=== PATIENT | female | born 1980 | race Caucasian/White ===

== ENCOUNTER 2020-03-14 02:23 | Outpatient (CLI) | payer OTHER, SELFPAY ==
[2020-03-14 19:02] LABS: SARS-CoV-2 RNA PCR Negative
== END 2020-03-14 02:24 | disposition home or self-care (01) ==
LOC: ANHCOVIDDT 02:23
PROVIDERS: PCP Internal Medicine; Visit Provider Obstetrics & Gynecology
DX: Z01.812 Encounter for preprocedural laboratory examination (principal); Z20.828 Contact with and (suspected) exposure to other viral communicable diseases
CPT/HCPCS: 87635; C9803; U0003

== ENCOUNTER 2020-03-16 01:03 | Day surgery (SDC) | payer OTHER, SELFPAY ==
[2020-03-03 15:27] VITALS: BMI 32.2
[2020-03-16] VITALS (8 sets, daily range): BP systolic 110–120; BP diastolic 56–70; PULSE 55–72; RESP 12–16; TEMP 36.6–36.8; O2SAT 100
[2020-03-16] MEDS: LACTATED RINGERS 1,000 ML 30 ML IV CONT ×2 (08:32→11:18)
[2020-03-16] MEDS: ACETAMINOPHEN 500 MG TABLET 1000 MG PO (08:32)
[2020-03-16] MEDS: KETOROLAC 15 MG/ML VIAL (*BKC) IV PUSH (08:34)
--- NOTE | 2020-03-16 09:45 | WPDANESEPPF ---
Anes - Initial Pre Proc Eval Procedure: Operation Date: 03/16/20 10:00 Proposed Procedures p Laparoscopic Tubal with Bilateral Salpingectomy, Hysteroscopy with Earline Ablation - Zoila Hunt MD Date/Time: 03/16/20 09:45 Surgeon: Zoila Hunt MD Pre Op Diagnosis: sterilization, abn uterine bleeding Patient Data Age: 40 Gender: F Height: 5 ft Weight: 75.7 kg Last Vital Signs Temp 98.2 F 03/16/20 08:10 Pulse 70 03/16/20 08:10 Resp 16 03/16/20 08:10 BP 120/70 03/16/20 08:10 Pulse Ox 100 03/16/20 08:10 Allergies Allergy/AdvReac Type Severity Reaction Status Date / Time hydrocodone Allergy Severe rash/itchin Verified 03/16/20 08:03 g scopolamine Allergy Severe Rash Verified 03/16/20 08:03 Home Medications Medication Instructions Recorded Confirmed Type fluoxetine 20 mg PO DAILY 03/03/20 03/16/20 History montelukast 10 mg PO DAILY 03/03/20 03/16/20 History Patient hx anesthesia problems: none Family hx anesthesia problems: none [facility] Past Medical History Medical History (Updated 03/16/20 @ 09:45 by Kiet Sue MD) Asthma JACKELINE (obstructive sleep apnea) resolved with loss of weight Social History Social History Smoking status: Never smoker Spiritual care concerns: No Anes - Eval Final PreProcedure Day of Procedure 03/16/20 09:45 Patient weight: obese Heart: regular rate and rhythm Lungs: clear to auscultation Airway: Mallampati scale class II Neurological: alert and oriented Last oral intake: >/= 8 hours ASA classification: II Emergent: no Anesthetic plan: proceed Anesthesia type and monitoring: general ETT and standard monitoring Informed Consent: The patient's anesthetic plan and its attendant risks and benefits were discussed with the patient/family/POA. Questions were solicited and answers provided to the satisfaction of the patient/family/POA.
--- NOTE | 2020-03-16 10:07 | PM.HPGS ---
History of Present Illness History of Present Illness Consent: Risks, benefits, and alternatives have been discussed and questions answered. Patient agrees to proceed with procedure. Chief complaint: sterilization, abn uterine bleeding Narrative: Shira Jacob is a 40 year old female CC scheduled surgery HPI Here for scheduled surgery. Had EMB benign. Desired sterilization. However having ongoing issues with bleeding. Had gastric surgery so encouraged not to use oral hormoens and other forms havent agreed. R/B/A discussed. ROS -ESPINOZA, -Vis changes, -F/s/c, -hotflashes, -nightsweats -CP, -palpitations, -irregular heart beats -SOB, -Cough/wheeze -Abdominal pain, -diarrhea/constipation -Vaginal discharge, -bleeding, -ulcerations or masses -New skin lesions, -dryness, -hairloss -trouble ambulation, -vertigo, -dizziness, -muscle weakeness, -joint pains -depression/anxiety, -suicidal/homicidal ideation, -hallucinations PMHx Asthma PSHx Elbow Surgery - 12/2017 Gastric sleeve - 03/2019 Gallbladder Removal - 10/07 Basal Cell Carcinoma excision - 07/2015 Comments: Hernia repair with mesh FHx Comments: Fhx: Breast CA, Ovarian CA (sister), Cervical CA (mother) Soc Hx Tobacco: Never smoker Alcohol: Occasional drink Cardiovascular: Regular exercise Safety: Keep Firearms in home Ob Preg Hx Ob History: Age of menses:13 G4 T0 L3 Medications (Medication reconciliation last updated 02/11/2020 11:11 AM, ZOILA HUNT - Performed) Macrobid 100 mg capsule, 1 cap po bid (Edited by ZOILA HUNT on Feb, at 04:18 PM ) doxycycline monohydrate 100 mg capsule, 1 tab po bid x 14 days (Edited by ZOILA HUNT on Jan, at 11:11 AM ) FlagyL 500 mg tablet, 1 tab po bid (Edited by ZOILA HUNT on Jan, at 05:26 PM ) ALBUTEROL HFA 90 MCG INHALER (Edited by TERRY KIDD on Nov, at 07:00 PM ) FLUOXETINE HCL 20 MG CAPSULE (Edited by TERRY KIDD on Jun, at 06:00 PM ) CALCIUM 600-VIT D3 400 TABLET (Edited by CHARLOTTE BATES on 18 Nov, 2019 at 06:00 PM ) Allergies (Allergy reconciliation performed by ZOILA HUNT 07:59 AM 27 Feb 2020 Last updated) Vicodin (Unknown) scopolamine (Unknown) Comments:patch Vitals 10 Mar 2020 - 03:15 PM - recorded by Jada Wadsworth BP: 120.0 / 73.0 HR: 74.0 bpm Temp: 98.1 ?F Ht/Lt: 5' 0 Wt: 164 lbs 0 oz BMI: 32.03 EXAM GEN: NAD RESP: lungs clear to auscultation bilaterally, no rales, wheezes or rhonchi CV: RRR, no m/r/g GI: +BS, nontender to palpation EXT: no cyanosis/clubbing/edema NEURO: AO x 3 PSYCH: judgment/insight intact, NL mood/affect Assessment Sterilization requested (situation) (Z30.2/V25.2) Encounter for sterilization modified Feb, Abnormal vaginal bleeding (finding) (N93.9/626.9) Abnormal uterine and vaginal bleeding, unspecified modified Feb, Plan Plan is to proceed with scheduled surgery. All risks/benefits/alternatives were discussed in detail including: Injury to surrounding organs, infection, bleeding, blood transfusion, and repeat surgery. All post operative care instructions reviewed and were sent to her via the portal for review as well. She agrees to proceed. Plan to move forward [facility] laparoscopic tubal sterilization and endometrial ablation with augustine HUNT M.D. 16 Mar 2020 10:07 AM [facility] Past Medical History Medical History Asthma JACKELINE (obstructive sleep apnea) resolved with loss of weight Social History Social History Smoking status: Never smoker Spiritual care concerns: No Meds Home Medications and Allergies Home Medications Medication Instructions Recorded Confirmed Type fluoxetine 20 mg PO DAILY 03/03/20 03/16/20 History montelukast 10 mg PO DAILY 03/03/20 03/16/20 History Allergies Allergy/AdvReac Type Severity Reaction Status Date / Time [facility]
--- NOTE | 2020-03-16 10:08 | WPDHPUPDATE1 ---
History and Physical Update Update Date/Time: 03/16/20 10:08 History and Physical has been reviewed, including an updated exam of the patient. There are NO changes in the patient's condition. Risks, benefits, and alternatives have been discussed and questions answered. Patient agrees to proceed with procedure.
--- NOTE | 2020-03-16 11:13 | PM.PROC ---
Procedure Note - Detailed Date of procedure: 03/16/20 Pre-op diagnosis: sterilization, abn uterine bleeding Post-op diagnosis: other (Abnormal uterine bleeding, left ovarian cyst, sterilization) Procedure performed: Hysteroscopy D&C with endometrial ablation with Earline, Laparoscopy bilateral salpingectomy and right ovarian cystectomy Description of procedure: The patient was taken to the operating room where general anesthesia was found to be adequate She was then prepared and draped in the dorsal lithotomy position in [facility]. A speculum was used to visualize the cervix and a single toothed tenaculum was placed on the anterior lip. [place] uterine manipulator used to insert into the cervix and affix to the tenaculum. Speculum was removed. Attention was then turned to the umbilicus which was injected with 0.5% marcaine with epinephrine, incised in her previous umbilical incision and subcutaneous tissue dissected with a hemostat. Veres needle used to insert into the peritoneum cavity and saline drop test positive for peritoneal entry. CO2 used for insufflation up to 15mmHg. A 5mm port was inserted into the infraumbilical incision and the camera inserted. No adhesions noted. The patient was then placed in Trendelenberg. The uterus was elevated and found to be normal and free of adhesions or endometriosis. The tubes were normal bilaterally. The left ovary had a ovarian cyst present which appeared simple. A left lower quadrant port was placed by injecting the skin with 0.5% marcaine with epinephrine, incising with a scalpel and placing the 5mm port with direct visualization approximately 2 fingerbreadths medial to the left asis. Similarly a right lower port placed just to the right of midline at the suprapubic region. The left fallopian tube was elevated exposing the fimbria. The tuboovarian ligament was cauterized to the base and the tube was then amputated at its base with the 5mmLigasure. It was pulled through the 5mm port and sent to pathology. Similarly the right was done in the same fashion. After the tubes were removed, there was good hemostasis noted. The left ovarian cyst appeared to have an opening as if it were an ovulatory follicle. The ovary was squeezed and the cyst popped out. It was removed. Then the edges of the cyst marc were cauterized with the J hook cautery. The pneumoperitoneum was released and the ports were removed. The incision were closed with verticle mattress sutures deep to the skin and covered with sterile dressing. Attention was turned to the vagina where the speculum was again reinserted. The uterus was serially dilated with Hegar dilators. A 5mm hysteroscope was inserted and saline 0.9% used for distension. The cavity appeared white and fluffy without polyp or distortion. So, the uterus was sounded to 9cm and cervix measured to be 4cm Cavity length 5cm. Earline was set and inserted. Cavity assessment passed and ablation proceeded without interruption. The camera reinserted and cavity had adequate coverage of ablation. The patient tolerated the procedure well. Sponge lap and needle counts were correct. Anesthesia: GETA Surgeon: Zoila Hunt MD Estimated blood loss (mL): 10 Drains: No Packing: No Pathology: yes (bilateral fallopian tubes and left ovarian cyst) Complications: No immediate complications Condition: stable Disposition: PACU Findings: simple appearing left ovarian cyst and normal uterus ovaries and tubes overall
[2020-03-16] MEDS: BUPIVACAINE/EPINEPHRINE 0.5% 10 ML VIAL 20 ML INFILTRATE (11:22)
[2020-03-16] MEDS: fentaNYL CITRATE INJ (*CRX) 100 MCG/2 ML VIAL 25 MCG IV PUSH ×4 (11:32→13:21)
[2020-03-16] MEDS: oxyCODONE HCL (*CRX) 5 MG TAB IR PO (12:47)
--- NOTE | 2020-03-16 13:01 | SUR.PHASEII ---
PT AWAKE AND ALERT. STATES PAIN REMAINS 5/10. STATES TOLERABLE.
--- NOTE | 2020-03-16 13:39 | SUR.PHASEII ---
1330; PT AWAKE AND ALERT. STATES PAIN 4/10 AND TOLERABLE. ASKING TO GO HOME. MEETS DISCHARGE CRITERIA.
--- NOTE | 2020-03-16 13:58 | SUR.PHASEII ---
1345; PT AWAKE AND ALERT. FULLY DRESSED. WAITING FOR RIDE.
== END 2020-03-16 14:10 | disposition home or self-care (01) ==
PROVIDERS: PCP Internal Medicine; Visit Provider Obstetrics & Gynecology
PROC: 0UDB8ZZ Extraction of Endometrium, Via Natural or Artificial Opening Endoscopic (ICD-10-PCS; CPT 58558; principal; 2020-03-16 10:00)
DX: Z30.2 Encounter for sterilization (principal); N93.9 Abnormal uterine and vaginal bleeding, unspecified; N83.292 Other ovarian cyst, left side; J45.909 Unspecified asthma, uncomplicated; E66.9 Obesity, unspecified; Z68.32 Body mass index [BMI] 32.0-32.9, adult
CPT/HCPCS: 58563; 58661; 58662; 88302; 88305; A9270; J1100; J1885; J2250; J2405; J2704; J3010; J7030; J7120

== ENCOUNTER 2021-01-29 22:48 | Emergency (ER) | payer OTHER, SELFPAY ==
[2021-01-29 23:20] VITALS: BP 135/84; PULSE 72; RESP 20; TEMP 36.8; O2SAT 100
[2021-01-29 23:20] LABS: Add Urine Microscopic? YES; Appearance Urine Cloudy (Clear); Bilirubin Urine Negative (Negative); Blood Urine 3+ (Negative); Color Urine Light Yellow (Yellow); Glucose Urine UA Negative (Negative); Ketones Urine Negative (Negative); Leukocyte Esterase Ur 3+ (Negative); Nitrate Urine Negative (Negative); Protein Urine 2+ (Negative); Urobilinogen Urine 0.2 mg/dL (0.2-1.0)
[2021-01-29 23:27] LABS: Bacteria Urine 1+ /hpf; RBC Urine >75 /hpf (0-2); Squamous Epithelial Cell Urine Rare /hpf (Few); WBC Urine 31-50 /hpf (0-3)
--- NOTE | 2021-01-29 23:30 | ED.FEMALEGU ---
HPI - Female Genitourinary General Chief complaint: Urogenital-Female Stated complaint: severe yeast infection/Urinating blood Source: patient Mode of arrival: ambulatory Limitations: no limitations History of Present Illness HPI Narrative: This is a 40-year-old female who presents with dysuria and dark-colored urine was recently seen at and urgent care and prescribed Diflucan for a yeast infection but subsequent to that the patient has been having some dysuria with burning, no flank pain no fever chills no nausea vomiting does have some suprapubic MD elicited complaint: dysuria and UTI Onset (ago): day(s) Severity: mild Related Data Home Medications Medication Instructions Recorded Confirmed fluoxetine 20 mg PO DAILY 03/03/20 01/29/21 montelukast 10 mg PO DAILY 03/03/20 01/29/21 albuterol sulfate 2 puff INHALATION PRN PRN 01/29/21 01/29/21 Allergies Allergy/AdvReac Type Severity Reaction Status Date / Time hydrocodone Allergy Severe rash/itchin Verified 03/16/20 08:03 g scopolamine Allergy Severe Rash Verified 03/16/20 08:03 Review of Systems Review of Systems: All systems reviewed & are unremarkable except as noted in HPI and below PMFSH Past Medical History Medical History Asthma JACKELINE (obstructive sleep apnea) resolved with loss of weight Social History Social History Smoking status: Never smoker Spiritual care concerns: No Exam Const: General: no acute distress Orientation/consciousness: patient oriented x3 HENMT: Head: normal to inspection Eyes: Conjunctivae: conjunctivae normal Pupils: Equal, round and reactive pupils present EOM: EOMs intact bilaterally Neck: Neck: normal visual inspection, no lymphadenopathy and no meningeal signs Chest: Chest palpation & inspection: normal inspection of the chest Resp: Effort & Inspection: normal respiratory effort Auscultation: clear to auscultation bilaterally Cardio: Rate: regular rate Rhythm: regular rhythm GI: GI Palp: Yes Soft to palpation Percussion: Yes normal to percussion : General: Yes no CVA tenderness Urinary Catheter: Urinary Catheter: urine cloudy Back/Spine/Pelvis: Back: no CVA tenderness Skin: General skin exam: normal color Neuro: General: patient oriented x3 Extrem: General: normal to inspection and no pedal edema Psych: Mental Status: mental status grossly normal Course Course Emergency Course: Patient resting comfortably received IM ceftriaxone and UA reviewed with patient. Vital Signs Vital signs: Vital Signs Temperature 36.8 C 01/29/21 23:20 Pulse Rate 72 01/29/21 23:20 Respiratory Rate 01/29/21 23:20 Blood Pressure 135/84 01/29/21 23:20 Pulse Oximetry 100 01/29/21 23:20 Temperature 36.8 C 01/29/21 23:20 Pulse Rate 72 01/29/21 23:20 Respiratory Rate 01/29/21 23:20 Blood Pressure 135/84 01/29/21 23:20 Pulse Oximetry 100 01/29/21 23:20 MDM - Female Genitourinary Lab Data Labs: Lab Results 01/29/21 Range/Units 23:16 Urine Color Light yellow (Yellow) Urine Appearance Cloudy A (Clear) Urine pH 7.0 (5.0-8.0) Ur Specific [place] 1.010 (1.010-1.020) Urine Protein 2+ H (Negative) Urine Glucose (UA) Negative (Negative) Urine Ketones Negative (Negative) Ur Blood (Man) 3+ H (Negative) Urine Nitrate Negative (Negative) Urine Bilirubin Negative (Negative) Urine Urobilinogen 0.2 (0.2-1.0) mg/dL Ur Leukocyte Esterase 3+ H (Negative) Urine RBC >75 H (0-2) /hpf Urine WBC 31-50 H (0-3) /hpf Ur Squamous Epith Cells Rare (Few) /hpf Urine Bacteria 1+ H (None) /hpf Urine Characteristics Cloudy Critical Care Time Critical Care Time Critical Care Time: No Discharge Plan Discharge Clinical Impression: Urinary tract in
[2021-01-29] MEDS: cefTRIAXone 1 GM VIAL IM (23:35)
[2021-01-29] MEDS: PHENAZOPYRIDINE HCL 100 MG TABLET 200 MG PO (23:41)
[2021-01-29 23:50] VITALS: BP 140/82; PULSE 87; RESP 18; TEMP 36.6; O2SAT 97
== END 2021-01-29 23:53 | disposition home or self-care (01) ==
PROVIDERS: Emergency Provider Emergency Medicine; PCP Internal Medicine
DX: N30.00 Acute cystitis without hematuria (principal)
CPT/HCPCS: 81001; 96372; 99283; A9270; J0696

== ENCOUNTER 2021-06-18 10:29 | Outpatient (CLI) | payer OTHER, SELFPAY ==
[2021-06-18 13:27] LABS: SARS-CoV-2 Ag Negative (Negative)
== END 2021-06-18 10:30 | disposition home or self-care (01) ==
LOC: CHSLAB 10:33
PROVIDERS: PCP Internal Medicine; Visit Provider Internal Medicine Critical Care Medicine
DX: Z20.822 Contact with and (suspected) exposure to COVID-19 (principal); Z01.818 Encounter for other preprocedural examination
CPT/HCPCS: 87426; C9803

== ENCOUNTER 2021-06-20 19:42 | Outpatient (CLI) | payer OTHER, SELFPAY ==
--- NOTE | 2021-07-02 10:41 | WPDSLEEPSTUD ---
Sleep Study Date of Study: 06/20/21 Ordering Provider: Jeff Veloz APRN Interpreting Physician: Estefany Rawls MD Sleep Study Type: Polysomnogram Height: 1.52 m Weight: 74.843 kg Body Mass Index: 32.2 Neck Circumference (inches): 14 [place]: 12 Reason for Sleep Study Hypersomnolence Sleep History Shira Jacob is a 41 year old female with a history of obstructive sleep apnea treated with CPAP. She has difficulty falling asleep and staying asleep, and this started over 7 years ago. She is always tired. Even after a full night of sleep, she is never rested. She had a prior sleep study in [place] that showed obstructive sleep apnea and CPAP was started at a pressure of 7 cm. This helped for a while. She had a gastric bypass procedure in 2019, lost 70 lb. Even with weight loss, her sleep is still not satisfactory. She has difficulty staying asleep. She wants to see if she requires a new device. Her CPAP broke over 8 months ago, so she has not used it recently. There is a positive family history with her father also having sleep apnea, she has use sleeping pills, CPAP and other devices to help her improve her quality of sleep. She rarely awakens from sleep feeling short of breath. She does not awaken at night with heartburn, belching or coughing. She occasionally snores and occasionally it is loud enough that others complain about it. She occasionally has trouble sleeping with a cold. She does not wake up gasping for breath at night. She does not have breathing problems at night observed by others. She rarely sweats excessively at night. She does not notice her heart pounding or beating irregularly at night. She occasionally falls asleep during the day, rarely falls asleep involuntarily, never falls asleep while driving. She does not have loss of muscle tone with strong emotion. She frequently has daytime difficulties due to excessive sleepiness. She does not feel paralyzed on waking or falling asleep. She rarely has vivid dreamlike scenes upon awakening or falling asleep. She does not feel afraid to go to sleep. She occasionally has nightmares. She does not remember her dreams. She occasionally has racing thoughts. She rarely feels sad or depressed. She occasionally has anxiety. She occasionally has muscular tension. She does not notice parts her body jerking. She does not kick at night. She rarely has crawling and aching feelings in her legs, rarely has any kind of leg pain at night. She occasionally has morning jaw pain. She does not grind her teeth during sleep. She occasionally is bothered by pain during the day. She never is awakened by pain at night. She frequently wakes up feeling stiff in the morning with sore achy muscles and pain in the neck and spine. She takes sedatives., She reports memory problems, concentration difficulties, headaches, bowel disturbances and fatigue. She has morning headaches and she's not sure if it is due to allergies or weather changes. Normal bedtime is 10:00 p.m. sometimes falling asleep quickly but at other times taking hours fall asleep. She typically wakes up 3-4 times at night to urinate. it takes 5-10 minutes for to return to sleep sometimes longer. She wakes in the morning at 6:30 a.m.. On the weekends bedtime is still 10:00 a.m. however she sleeps later, 8:00 a.m.. She estimates getting between 5-8 hours of sleep at night. Her sleep is disturbed by her need to urinate and by feeling hot. She does not take naps in the afternoon or evening. A short nap is not refreshing. She feels better in the morning compared to other times of day. She is drowsy in the morning for an hour after waking. Habits: Never smoked tobacco. Caffeine 1 serving in the morning. Alcohol once or twice a month. No recreational drugs. [facility] Past Medical History Medical History Abnormal uterine bleeding s/p hysterectomy 02/2020 Allergic rhiniti
[2021-07-02 11:54] VITALS: BMI 32.2
== END 2021-06-21 06:05 | disposition home or self-care (01) ==
PROVIDERS: PCP Internal Medicine; Visit Provider Nurse Practitioner Family
DX: G47.10 Hypersomnia, unspecified (principal)
CPT/HCPCS: 95810

== ENCOUNTER 2021-07-17 09:54 | Outpatient (CLI) | payer OTHER, SELFPAY ==
[2021-07-17 11:20] LABS: Ferritin 92 ng/mL (8-252)
== END 2021-07-17 09:55 | disposition home or self-care (01) ==
LOC: CHSLAB 09:55
PROVIDERS: PCP Internal Medicine; Visit Provider Nurse Practitioner Family
DX: R53.82 Chronic fatigue, unspecified (principal)
CPT/HCPCS: 36415; 82728

== ENCOUNTER 2021-09-06 09:38 | Emergency (ER) | payer OTHER, SELFPAY ==
[2021-09-06 09:40] VITALS: BP 139/77; PULSE 90; RESP 16; TEMP 36.3; O2SAT 98
--- NOTE | 2021-09-06 10:04 | ED.FEMALEGU ---
HPI - Female Genitourinary General Chief complaint: Urogenital-Female Stated complaint: BLADDER INFECTION Source: patient Mode of arrival: ambulatory Limitations: no limitations History of Present Illness HPI Narrative: this is a 41-year-old female who presents with dysuria urinary frequency and burning with suprapubic tenderness with palpation and a pressure sensation currently no fever chills no nausea vomiting no chest pain or shortness of breath. MD elicited complaint: dysuria and UTI Onset (ago): day(s) Related Data Home Medications Medication Instructions Recorded Confirmed fluoxetine 20 mg PO DAILY 03/03/20 09/06/21 Allergies Allergy/AdvReac Type Severity Reaction Status Date / Time hydrocodone Allergy Severe rash/itchin Verified 09/06/21 10:08 g scopolamine Allergy Severe Rash Verified 09/06/21 10:08 Review of Systems Review of Systems: All systems reviewed & are unremarkable except as noted in HPI and below PMFSH Past Medical History Medical History Abnormal uterine bleeding s/p hysterectomy 02/2020 Allergic rhinitis Anxiety Asthma Colonic polyp Encounter for sterilization JACKELINE (obstructive sleep apnea) resolved with loss of weight Surgical History Surgical History H/O basal cell carcinoma excision 07/2015 H/O elbow surgery 2017 H/O gastric sleeve 03/2019 H/O hernia repair Hx of cholecystectomy 09/2014 Family History Family History Mother Cervical cancer had total hysterectomy Sibling Ovarian cancer, Onset Age: 30 Father , age 51 from diabetic complications Diabetes mellitus Heart disease had PCI Depression Crohn disease Diverticulitis Son No problems noted. Daughter No problems noted. Son No problems noted. Social History Social History Smoking status: Never smoker Alcohol use details: social Substance use: never Additional occupation/education comments: [employer] at [employer] Spiritual care concerns: No Exam Const: General: no acute distress and alert Orientation/consciousness: patient oriented x3 HENMT: Head: normal to inspection Eyes: Conjunctivae: conjunctivae normal Pupils: Equal, round and reactive pupils present EOM: EOMs intact bilaterally Neck: Neck: normal visual inspection, no lymphadenopathy and no meningeal signs Lymphatic: no lymphadenopathy noted and no lymphedema noted Chest: Chest palpation & inspection: normal inspection of the chest Resp: Effort & Inspection: normal respiratory effort Auscultation: clear to auscultation bilaterally Cardio: Rate: regular rate Rhythm: regular rhythm GI: GI Palp: Yes Soft to palpation : Other: Suprapubic tenderness with palpation Back/Spine/Pelvis: Back: no CVA tenderness Skin: General skin exam: normal color Rashes: no rashes Neuro: General: patient oriented x3, moves all extremities and no meningeal signs Extrem: General: normal to inspection and no pedal edema Psych: Mental Status: mental status grossly normal Affect: normal affect Course Course Emergency Course: UA reviewed with patient, patient received a dose of IM ceftriaxone 1g. MDM - Female Genitourinary Lab Data Labs: Lab Results 09/06/21 Range/Units 09:47 Urine Color Pending Urine Appearance Pending Urine pH Pending Ur Specific [place] Pending Urine Protein Pending Urine Glucose (UA) Pending Urine Ketones Pending Ur Blood (Man) Pending Urine Nitrate Pending Urine Bilirubin Pending Urine Urobilinogen Pending Ur Leukocyte Esterase Pending Critical Care Time Critical Care Time Critical Care Time: No Discharge Plan Discharge Clinical Impression: UTI (urinary tra
[2021-09-06 10:07] LABS: Add Urine Microscopic? YES; Appearance Urine Clear (Clear); Bilirubin Urine Negative (Negative); Blood Urine 2+ (Negative); Color Urine Yellow (Yellow); Glucose Urine UA Negative (Negative); Ketones Urine Negative (Negative); Leukocyte Esterase Ur 1+ (Negative); Nitrate Urine Negative (Negative); Protein Urine Negative (Negative); Specific Grav Ur 1.025 (1.010-1.020)
[2021-09-06 10:14] LABS: Squamous Epithelial Cell Urine Few /hpf (Few)
[2021-09-06 10:15] LABS: Bacteria Urine Trace /hpf
[2021-09-06] MEDS: cefTRIAXone 1 GM VIAL IM (10:33)
[2021-09-06] MEDS: LIDOCAINE HCL 1% LOCAL INJ 20 ML VIAL 2.2 ML INFILTRATE (10:33)
[2021-09-06 10:40] VITALS: BP 127/60
== END 2021-09-06 10:40 | disposition home or self-care (01) ==
PROVIDERS: Emergency Provider Emergency Medicine; PCP Internal Medicine
DX: N30.00 Acute cystitis without hematuria (principal)
CPT/HCPCS: 81001; 96372; 99283; J0696

== ENCOUNTER 2022-07-27 09:54 | Emergency (ER) | payer OTHER, SELFPAY ==
[2022-07-27 10:01] VITALS: BP 128/81; PULSE 94; RESP 18; TEMP 37.1; O2SAT 98
--- NOTE | 2022-07-27 10:10 | ED.NAVMDI ---
HPI - Nausea/Vomiting/Diarrhea General Chief complaint: Nausea/Vomiting/Diarrhea Stated complaint: diarrhea Time Seen by Provider: 07/27/22 10:01 Source: patient Mode of arrival: ambulatory Limitations: no limitations History of Present Illness HPI Narrative: this is a 42 old Female no with significant past history except for history gastric sleeve, for the past 3 days nausea crampy abdominal pain, with watery diarrhea that she states has improved has been taking no fever no dysuria hematuria no no chest pain or shortness of breath. MD elicited complaint: nausea, vomiting, diarrhea and abdominal pain Onset (ago): day(s) Description of diarrhea: watery Associated nausea: Yes Associated abdominal pain: Yes Radiation: diffuse Pain consistency: intermittent Severity: mild Quality: cramping Exacerbating factors: eating Related Data Home Medications Medication Instructions Recorded Confirmed fluoxetine 20 mg capsule 20 mg PO DAILY 03/03/20 07/27/22 albuterol sulfate 90 mcg/actuation 1 puff inhalation Q4-6H PRN 07/27/22 07/27/22 aerosol inhaler Shortness Of Breath Or Wheezing Allergies Allergy/AdvReac Type Severity Reaction Status Date / Time hydrocodone Allergy Severe rash/itchin Verified 07/27/22 10:13 g scopolamine Allergy Severe Rash Verified 07/27/22 10:13 Review of Systems Review of Systems: All systems reviewed & are unremarkable except as noted in HPI and below PMFSH Past Medical History Medical History Abnormal uterine bleeding s/p hysterectomy 02/2020 Allergic rhinitis Anxiety Asthma Colonic polyp Encounter for sterilization JACKELINE (obstructive sleep apnea) resolved with loss of weight Surgical History Surgical History H/O basal cell carcinoma excision 07/2015 H/O elbow surgery 2018 H/O gastric sleeve 03/2019 H/O hernia repair Hx of cholecystectomy 09/2014 Family History Family History Mother Cervical cancer had total hysterectomy Sibling Ovarian cancer, Onset Age: 30 Father , age 51 from diabetic complications Diabetes mellitus Heart disease had PCI Depression Crohn disease Diverticulitis Son No problems noted. Daughter No problems noted. Son No problems noted. 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 [employer] Spiritual care concerns: No Exam Const: General: healthy appearing Nutritional Appearance: well nourished Orientation/consciousness: patient oriented x3 Limitations: no limitations HENMT: Head: normal to inspection Face/Nose/Sinus: Normal external nose present Eyes: Conjunctivae: conjunctivae normal Pupils: Equal, round and reactive pupils present EOM: EOMs intact bilaterally Resp: Effort & Inspection: normal respiratory effort Auscultation: clear to auscultation bilaterally Cardio: Rate: regular rate Rhythm: regular rhythm GI: GI Palp: Yes Soft to palpation Auscultation: normal bowel sounds : General: Yes bladder normal to palpation Urinary Catheter: Urinary Catheter: patent and draining Back/Spine/Pelvis: Back: no CVA tenderness Skin: General skin exam: normal color Rashes: no rashes Wounds: no wounds Neuro: General: patient oriented x3 and moves all extremities Cranial nerves: Yes Nystagmus not present Speech: normal speech Extrem: General: normal to inspection Psych: Affect: normal affect Course Course Emergency Course: IV fluids along with IV Zofran was to the patient symptoms have improved, and labs reviewed with patient. Vital Signs
[2022-07-27 10:32] LABS: Basophils Absolute Auto 0.02 K/mm3 (0.00-0.10); Basophils Percent Auto 0.3 % (0.0-1.0); Eosinophils Absolute Auto 0.02 K/mm3 (0.02-0.50); Eosinophils Percent Auto 0.3 % (1.0-6.0); Hematocrit 45.6 % (35.0-49.0); Hemoglobin 15.5 g/dL (12.0-15.0); Immature Granulocyte Absolute 0.04 K/mm3 (0.00-0.00); Immature Granulocyte Percent A 0.6 % (0.0-0.0); Lymphocytes Absolute Auto 1.76 K/mm3 (1.10-4.50); Lymphocytes Percent Auto 25.3 % (18.0-42.0); Mean Corpuscular Hemoglobin 30.6 pg (27.0-31.0); Mean Corpuscular Volume 90.1 fL (78.0-102.0); Mean Platelet Volume 9.9 fl (9.2-11.8); Monocytes Absolute Auto 0.55 K/mm3 (0.10-0.90); Monocytes Percent Auto 7.9 % (2.0-11.0); Neutrophils Absolute Auto 4.6 K/mm3 (1.7-7.2); Neutrophils Percent Auto 65.6 % (50.0-70.0); Platelet Count Result 287 K/mm3 (150-420); Red Blood Count 5.06 M/mm3 (4.20-5.40); Red Cell Distribution Width 12.4 % (11.6-14.4)
[2022-07-27] MEDS: SODIUM CHLORIDE 0.9% IV 1,000 ML 999 ML IV CONT (10:40)
[2022-07-27] MEDS: ONDANSETRON INJ 4 MG/2 ML VIAL IV PUSH (10:40)
[2022-07-27 10:48] LABS: Alanine Aminotransferase 30 U/L (14-59); Albumin Level 3.8 g/dL (3.4-5.0); Alkaline Phosphatase 121 U/L (46-116); Anion Gap 12 mmol/L (8-16); Aspartate Amino Transferase 23 U/L (15-37); Bilirubin,Total 0.9 mg/dL (0.00-1.00); Blood Urea Nitrogen 10 mg/dL (7-18); Calcium 8.9 mg/dL (8.5-10.1); Carbon Dioxide 26 mmol/L (21-32); Chloride 102 mmol/L (98-108); Estimated CRCL calculation 77 ml/min; Estimated Glomerular Filt Rate > 60; Glucose 91 mg/dL (70-99); Lipase 25 U/L (16-77); Osmolality Calculated 289 mOsm/kg (285-295); Potassium 3.3 mmol/L (3.5-5.1); Sodium 140 mmol/L (136-145); Total Protein 8.1 g/dL (6.4-8.2)
[2022-07-27 10:51] LABS: Lactic Acid Reflex 0.8 mmol/L (0.4-2.0)
--- NOTE | 2022-07-27 11:01 | PC.NURSE ---
provider at bedside for patient update, results and plan.
[2022-07-27 11:20] VITALS: BP 124/73; PULSE 77; RESP 16; TEMP 36.7; O2SAT 99
== END 2022-07-27 11:22 | disposition home or self-care (01) ==
PROVIDERS: Emergency Provider Emergency Medicine; PCP Internal Medicine
DX: K52.9 Noninfective gastroenteritis and colitis, unspecified (principal)
CPT/HCPCS: 36415; 80053; 83605; 83690; 85025; 96361; 96374; 99284; J2405; J7030

== ENCOUNTER 2022-07-28 03:42 | Observation (INO) | payer OTHER, SELFPAY ==
[2022-07-28] VITALS (18 sets, daily range): BP systolic 102–142; BP diastolic 63–82; PULSE 71–100; RESP 16–18; TEMP 36.1–36.9; O2SAT 96–99; BMI 37.4
--- NOTE | ~2022-07-28 | CT_ITS ---
EXAMINATION: CT abdomen pelvis w con DATE: 07/28/2022 04:46 INDICATION: Abdominal pain. Nausea. Diarrhea. TECHNIQUE: Computed tomography (CT) of the abdomen and pelvis was performed with 100 mL Omnipaque 350 intravenous contrast. Automated exposure control and iterative reconstruction technique were employe d. The dose-length product was 777.72 mGy-cm. COMPARISON: None. FINDINGS: The visualized portions of the lung bases demonstrate mild atelectasis in the left. No pleu ral effusion. The heart size is normal. No pericardial effusion. The liver and spleen are normal. The re are changes of cholecystectomy. There are changes of gastric sleeve procedure. The pancreas, adren al glands, and kidneys are normal. There is liquid stool in the colon correlating with the symptom of diarrhea. The appendix is normal. There are no pathologically enlarged lymph nodes. There is no free intraperitoneal fluid. There is mild thoracic and lumbar spondylosis. IMPRESSION: 1. No etiology for the patient's symptoms. Reviewed, dictated and finalized at location A. TANK LAMINATOR
[2022-07-28] MEDS: ONDANSETRON INJ 4 MG/2 ML VIAL IV PUSH (04:01)
[2022-07-28] MEDS: SODIUM CHLORIDE 0.9% IV 1,000 ML 999 ML IV CONT (04:02)
--- NOTE | 2022-07-28 04:03 | ED.ABDPAIN ---
HPI - Abdominal Pain General Chief Complaint: Abdominal Pain <Hemanth Hollis MD - Last Filed: 07/28/22 04:21> Stated Complaint: Abd pain <Hemanth Hollis MD - Last Filed: 07/28/22 04:21> Time Seen by Provider: 07/28/22 07:57 <Hemanth Hollis MD - Last Filed: 07/28/22 04:21> Source: patient <Hemanth Hollis MD - Last Filed: 07/28/22 04:21> Mode of arrival: ambulatory <Hemanth Hollis MD - Last Filed: 07/28/22 04:21> Limitations: no limitations <Hematnh Hollis MD - Last Filed: 07/28/22 04:21> History of Present Illness HPI narrative: this is 42-year-old female with a history of gastric sleeve presents with nausea currently no vomiting and has had increased diarrhea with sharp abdominal epigastric pain, was seen earlier in the day and with similar complaints but as the night went on the patient started to develop sharp epigastric discomfort with nausea and increased episodes of diarrhea. The patient is afebrile, with no chest pain no shortness of breath no flank pain no dysuria hematemesis. Also diagnosed with a urinary tract infection earlier this morning and started on antibiotics. <Hemanth Hollis MD - Last Filed: 07/28/22 04:21> MD elicited complaint: abdominal pain <Hemanth Hollis MD - Last Filed: 07/28/22 04:21> Pertinent past history: other <Hemanth Hollis MD - Last Filed: 07/28/22 04:21> Onset (ago): hour(s) <Hemanth Hollis MD - Last Filed: 07/28/22 04:21> Pain Consistency: intermittent <Hemanth Hollis MD - Last Filed: 07/28/22 04:21> Location: epigastric <Hemanth Hollis MD - Last Filed: 07/28/22 04:21> Severity: moderate <MD Selvin Faust Last Filed: 07/28/22 04:21> Pain scale (0-10): 6 <Hemanth Hollis MD - Last Filed: 07/28/22 04:21> Quality: stabbing <Hemanth Hollis MD - Last Filed: 07/28/22 04:21> Migration to: no migration <Hemanth Hollis MD - Last Filed: 07/28/22 04:21> Related Data Home Medications: Home Medications Medication Instructions Recorded Confirmed fluoxetine 20 mg capsule 20 mg PO DAILY 03/03/20 07/28/22 albuterol sulfate 90 mcg/actuation 1 puff inhalation Q4-6H PRN 07/27/22 07/28/22 aerosol inhaler Shortness Of Breath Or Wheezing <Hemanth Hollis MD - Last Filed: 07/28/22 04:21> Allergies/Adverse Reactions: Allergies Allergy/AdvReac Type Severity Reaction Status Date / Time hydrocodone Allergy Severe rash/itchin Verified 07/28/22 03:47 g scopolamine Allergy Severe Rash Verified 07/28/22 03:47 <Hemanth Hollis MD - Last Filed: 07/28/22 04:21> Review of Systems Review of Systems: All systems reviewed & are unremarkable except as noted in HPI and below <Hemanth Hollis MD - Last Filed: 07/28/22 04:21> PMFSH Past Medical History Medical History: Medical History (Updated 07/29/22 @ 09:49 by Jason Patel NP) Abnormal uterine bleeding s/p hysterectomy 02/2020 Allergic rhinitis Anxiety Asthma Colonic polyp Encounter for sterilization JACKELINE (obstructive sleep apnea) resolved with loss of weight UTI (urinary tract infection) <Hemanth Hollis MD - Last Filed: 07/28/22 04:21> Surgical History Surgical History: Surgical History H/O basal cell carcinoma excision 07/2015 H/O elbow surgery 2018 H/O gastric sleeve 03/2019 H/O hernia repair Hx of cholecystectomy 09/2014 <Hemanth Hollis MD - Last Filed: 07/28/22 04:21> Family History Family History: Family History Mother Cervical cancer had total hysterectomy Sibling Ovarian cancer, Onset Age: 30 Father , age 51 from diabetic complications Diabetes mellitus Heart disease had PCI Depression Crohn disease Diverticulitis Son No problems noted. Daughter
[2022-07-28] MEDS: PANTOPRAZOLE SODIUM IV 40 MG VIAL 80 MG IV PUSH (04:04)
[2022-07-28] MEDS: MORPHINE SULFATE (*CRX) 2 MG/ML INJ IV PUSH (04:04)
[2022-07-28 04:31] LABS: Basophils Absolute Auto 0.02 K/mm3 (0.00-0.10); Basophils Percent Auto 0.2 % (0.0-1.0); Eosinophils Absolute Auto 0.03 K/mm3 (0.02-0.50); Eosinophils Percent Auto 0.3 % (1.0-6.0); Hematocrit 41.5 % (35.0-49.0); Hemoglobin 13.8 g/dL (12.0-15.0); Immature Granulocyte Absolute 0.04 K/mm3 (0.00-0.00); Immature Granulocyte Percent A 0.4 % (0.0-0.0); Lymphocytes Absolute Auto 1.24 K/mm3 (1.10-4.50); Lymphocytes Percent Auto 12.1 % (18.0-42.0); Mean Corpuscular HGB Conc 33.3 g/dL (32.0-36.0); Mean Corpuscular Hemoglobin 30.8 pg (27.0-31.0); Mean Corpuscular Volume 92.6 fL (78.0-102.0); Mean Platelet Volume 9.9 fl (9.2-11.8); Monocytes Absolute Auto 0.86 K/mm3 (0.10-0.90); Monocytes Percent Auto 8.4 % (2.0-11.0); Neutrophils Absolute Auto 8.1 K/mm3 (1.7-7.2); Neutrophils Percent Auto 78.6 % (50.0-70.0); Platelet Count Result 234 K/mm3 (150-420); Red Blood Count 4.48 M/mm3 (4.20-5.40); Red Cell Distribution Width 12.4 % (11.6-14.4); White Blood Count 10.3 K/mm3 (4.8-10.8)
[2022-07-28 04:37] LABS: Pregnancy On Board Control Positive; Urine Pregnancy Test Negative
[2022-07-28 04:42] LABS: Bilirubin Urine 1+ (Negative); Blood Urine 1+ (Negative); Color Urine Yellow (Yellow); Glucose Urine UA Negative (Negative); Ketones Urine 2+ (Negative); Leukocyte Esterase Ur Trace LEU/UL (Negative); Nitrate Urine Negative (Negative); Protein Urine Trace (Negative); Specific Grav Ur >= 1.030 (1.010-1.020); Urobilinogen Urine 0.2 mg/dL (0.2-1.0)
[2022-07-28 04:44] LABS: Alanine Aminotransferase 28 U/L (14-59); Albumin Level 3.3 g/dL (3.4-5.0); Alkaline Phosphatase 106 U/L (46-116); Anion Gap 12 mmol/L (8-16); Aspartate Amino Transferase 34 U/L (15-37); Bilirubin,Total 0.8 mg/dL (0.00-1.00); Blood Urea Nitrogen 7 mg/dL (7-18); Calcium 7.8 mg/dL (8.5-10.1); Carbon Dioxide 21 mmol/L (21-32); Chloride 107 mmol/L (98-108); Estimated CRCL calculation 88 ml/min; Estimated Glomerular Filt Rate > 60; Glucose 97 mg/dL (70-99); Lipase 26 U/L (16-77); Osmolality Calculated 288 mOsm/kg (285-295); Potassium 3.2 mmol/L (3.5-5.1); Sodium 140 mmol/L (136-145); Total Protein 7.7 g/dL (6.4-8.2)
[2022-07-28 04:51] LABS: Add Urine Microscopic? YES; Appearance Urine Cloudy (Clear)
[2022-07-28 04:56] LABS: Amorphous Sediment Urine Heavy; Bacteria Urine 4+ /hpf; Mucus Urine Heavy /lpf; Squamous Epithelial Cell Urine Many /hpf (Few); WBC Urine 0-3 /hpf (0-3)
--- NOTE | 2022-07-28 09:04 | ADMGEN ---
This patient, Shira Jacob, was admitted to 2nd Floor Room 209-1. Patient/family oriented to hospital policies and general routines including ID bracelet, bed and alarms, visiting hours, pain management, procedures, bathroom and other care routines, personal items, smoking policy, room service/diet, and visiting hours. Information on how to activate the Rapid Response Team has been discussed. Patient/Family are encouraged to report perceived risks to care and to ask questions if they do not understand what they are told or what they should do.
[2022-07-28] MEDS: FLUoxetine HCL 20 MG CAPSULE PO (09:21)
[2022-07-28] MEDS: POTASSIUM CHLORIDE 20 MEQ TABLET PO ×2 (09:21→16:16)
[2022-07-28] MEDS: PHENAZOPYRIDINE HCL 100 MG TABLET 200 MG PO ×3 (09:22→16:16)
[2022-07-28] MEDS: SODIUM CHLORIDE 0.9% IV 1,000 ML 150 ML IV CONT ×2 (09:23→17:13)
--- NOTE | 2022-07-28 17:23 | PC.NURSE ---
Patient reports has had 2 BM. BM is loose but not as watery. No N/V. Drinking and voiding well
[2022-07-28] MEDS: ACETAMINOPHEN 325 MG TABLET 650 MG PO (19:28)
[2022-07-28] MEDS: CIPROFLOXACIN 500 MG TAB PO (20:46)
[2022-07-28] MEDS: traZODone HCL 50 MG TABLET PO (20:46)
--- NOTE | 2022-07-28 20:49 | PC.NURSE ---
Pt states she frequently gets yeast infections when taking antibiotics, will address with RUBBER GOODS INSPECTOR in the AM d/t being a non-urgent matter.
[2022-07-29] VITALS: BP 104/61; PULSE 74; RESP 16; TEMP 36.4; O2SAT 97
[2022-07-29] MEDS: SODIUM CHLORIDE 0.9% IV 1,000 ML 150 ML IV CONT (00:16)
[2022-07-29 05:25] LABS: Hematocrit 35.7 % (35.0-49.0); Hemoglobin 11.9 g/dL (12.0-15.0); Mean Corpuscular HGB Conc 33.3 g/dL (32.0-36.0); Mean Corpuscular Hemoglobin 30.4 pg (27.0-31.0); Mean Corpuscular Volume 91.1 fL (78.0-102.0); Mean Platelet Volume 10.2 fl (9.2-11.8); Platelet Count Result 227 K/mm3 (150-420); Red Blood Count 3.92 M/mm3 (4.20-5.40); Red Cell Distribution Width 12.6 % (11.6-14.4); White Blood Count 3.6 K/mm3 (4.8-10.8)
[2022-07-29 05:38] LABS: Alanine Aminotransferase 64 U/L (14-59); Albumin Level 2.7 g/dL (3.4-5.0); Alkaline Phosphatase 86 U/L (46-116); Anion Gap 6 mmol/L (8-16); Aspartate Amino Transferase 42 U/L (15-37); Bilirubin,Total 0.6 mg/dL (0.00-1.00); Blood Urea Nitrogen 3 mg/dL (7-18); Calcium 7.4 mg/dL (8.5-10.1); Carbon Dioxide 26 mmol/L (21-32); Chloride 113 mmol/L (98-108); Estimated CRCL calculation 107 ml/min; Estimated Glomerular Filt Rate > 60; Glucose 94 mg/dL (70-99); Osmolality Calculated 296 mOsm/kg (285-295); Potassium 3.4 mmol/L (3.5-5.1); Sodium 145 mmol/L (136-145); Total Protein 6.2 g/dL (6.4-8.2)
[2022-07-29 08:00] VITALS: BP 123/73; PULSE 66; RESP 16; TEMP 36.4; O2SAT 97
[2022-07-29] MEDS: CIPROFLOXACIN 500 MG TAB PO (09:04)
[2022-07-29] MEDS: POTASSIUM CHLORIDE 20 MEQ TABLET PO (09:04)
[2022-07-29] MEDS: FLUoxetine HCL 20 MG CAPSULE PO (09:04)
[2022-07-29] MEDS: PHENAZOPYRIDINE HCL 100 MG TABLET 200 MG PO (09:04)
--- NOTE | 2022-07-29 09:35 | PM.SD2 ---
Same Day Admit/Disch: HPI History of Present Illness Chief complaint: GASTROENTERITIS Narrative: Shira Jacob is a 42 year old female ? this is 42-year-old female with a history of gastric sleeve presents with nausea currently no vomiting and has had increased diarrhea with sharp abdominal epigastric pain, was seen earlier in the day and with similar complaints but as the night went on the patient started to develop sharp epigastric discomfort with nausea and increased episodes of diarrhea.? The patient is afebrile, with no chest pain no shortness of breath no flank pain no dysuria hematemesis. ? Also diagnosed with a urinary tract infection earlier this morning and started on antibiotics.?<Hemanth Hollis MD - Last Filed: 07/28/22 04:21> [facility] Past Medical History Medical History (Updated 07/29/22 @ 09:49 by Jason Patel NP) Abnormal uterine bleeding s/p hysterectomy 02/2020 Allergic rhinitis Anxiety Asthma Colonic polyp Encounter for sterilization JACKELINE (obstructive sleep apnea) resolved with loss of weight UTI (urinary tract infection) Surgical History Surgical History H/O basal cell carcinoma excision 07/2015 H/O elbow surgery 2017 H/O gastric sleeve 03/2019 H/O hernia repair Hx of cholecystectomy 09/2014 Family History Family History Mother Cervical cancer had total hysterectomy Sibling Ovarian cancer, Onset Age: 30 Father , age 51 from diabetic complications Diabetes mellitus Heart disease had PCI Depression Crohn disease Diverticulitis Son No problems noted. Daughter No problems noted. Son No problems noted. 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 [employer] Spiritual care concerns: No Same Day Admit/Disch: Med Pre-admit Medications Home Medications Medication Instructions Recorded Confirmed Type fluoxetine 20 mg capsule 20 mg PO DAILY 03/03/20 07/28/22 History albuterol sulfate 90 mcg/actuation 1 puff inhalation Q4-6H PRN 07/27/22 07/28/22 History aerosol inhaler Shortness Of Breath Or Wheezing ciprofloxacin HCl 500 mg tablet 500 mg PO Q12HR 7 days #14 tabs 07/29/22 Rx ondansetron HCl 4 mg tablet 4 mg PO Q6H PRN nausea and 07/29/22 Rx vomiting #10 tabs phenazopyridine 200 mg tablet 200 mg PO TID 6 doses #9 tabs 07/29/22 Rx (Pyridium) potassium chloride 20 mEq 20 meq PO BID 3 days #6 tabs 07/29/22 Rx tablet,extended release Exam Narrative: GENERAL:Well-appearing, well-nourished, and in no acute distress. HEAD:Normocephalic, atraumatic. EYES: PERRLA and EOMI. ENT: Nares clear, no rhinorrhea or epistaxis. Mucous membranes moist. CHEST: Clear to auscultation. No respiratory distress. HEART: Regular rate and rhythm. Normal peripheral pulses. ABDOMEN: Soft, nontender, nondistended, normal active bowel sounds. EXTREMITIES: Normal range of motion. No edema. SKIN: Warm, dry, no rash. NEURO: No focal deficits. Alert and oriented x3. DS: Data Data Completed and Pending Labs on day of discharge: Labs from last 24 hours 07/29/22 07/29/22 04:58 04:58 WBC 3.6 L RBC 3.92 L Hgb 11.9 L Hct 35.7 MCV 91.1 MCH 30.4 M
--- NOTE | 2022-07-29 11:04 | PC.NURSE ---
Pt discharged to self care. VSS. Pt given discharge instructions regarding medications: doseage, time, SE and why she is taking it. Follow up appointment, Instructed to call PCP or return to the hospital if symptoms reoccur. Pt transported to her vehical by .
--- NOTE | 2022-07-30 09:58 | PC.NURSE ---
Pt states she received and understood the discharge instructions. Pt states everybody was great .
== END 2022-07-29 10:30 | disposition home or self-care (01) ==
LOC: CHSED 08:40 → CHS2ND 09:31
PROVIDERS: Emergency Medicine; Nurse Practitioner; Admitting Provider Internal Medicine; Emergency Provider Family Medicine; PCP Internal Medicine; Visit Provider Internal Medicine
DX: K52.9 Noninfective gastroenteritis and colitis, unspecified (principal); N39.0 Urinary tract infection, site not specified; J45.909 Unspecified asthma, uncomplicated; F41.9 Anxiety disorder, unspecified; Z86.010 Personal history of colon polyps; Z98.84 Bariatric surgery status; Z90.49 Acquired absence of other specified parts of digestive tract
CPT/HCPCS: 36415; 74177; 80053; 81001; 81025; 83605; 83690; 85025; 85027; 87086; 96361; 96374; 96375; 99285; A9270; C9113; G0378; J2270; J2405; J7030; Q9967

== ENCOUNTER 2022-12-09 15:06 | Outpatient (CLI) | payer OTHER, SELFPAY ==
--- NOTE | ~2022-12-09 | XR_ITS ---
XR hip LT min 2V DATE: 12/09/2022 15:23 INDICATION: Left hip pain for 2 years. Injury at 14 years age. TECHNIQUE: AP and lateral views of left hip COMPARISON: 07/28/2022 CT abdomen pelvis FINDINGS: There is an old healed fracture of the proximal left femoral shaft. No recent fracture or dislocation. No periosteal reaction or bone destruction. No evidence of avascul ar necrosis. Left hip joint space is well preserved. Normal alignment at the pubic symphysis and left sacroiliac joint IMPRESSION: Old healed fracture of proximal shaft of left femur; no recent fracture or dislocation or bone destruction Reviewed, dictated and finalized at location B. IMPRESSION: Old healed fracture of proximal shaft of left femur; no recent frac ture or dislocation or bone destruction
== END 2022-12-09 15:07 | disposition home or self-care (01) ==
LOC: CHSIMG 15:08
PROVIDERS: PCP Internal Medicine; Visit Provider Nurse Practitioner Family
DX: M25.552 Pain in left hip (principal); Z87.81 Personal history of (healed) traumatic fracture
CPT/HCPCS: 73502

== ENCOUNTER 2023-06-25 17:55 | Emergency (ER) | payer OTHER, SELFPAY ==
[2023-06-25 18:00] VITALS: BP 128/80; PULSE 70; RESP 18; TEMP 36.6; O2SAT 100
--- NOTE | 2023-06-25 18:11 | ED.FEMALEGU ---
HPI - Female Genitourinary General Chief complaint: Urogenital-Female Stated complaint: blood in urine Source: patient Mode of arrival: ambulatory Limitations: no limitations History of Present Illness HPI Narrative: 33-year-old female with a history of asthma, dysfunctional uterine bleeding status post uterine ablation obesity status post gastric sleeve presents to the ER with a 1 day history of -- dysuria and hematuria -- chills without any fever -- no abdominal pain or back pain. MD elicited complaint: dysuria and UTI Pertinent past history: recurrent UTIs Onset (ago): day(s) ( Started 1 day ago) Severity: mild Female Urogenital Radiation: Non-Radiating Quality of pain: cramping Consistency: constant Vaginal discharge: none Vaginal bleeding: none Urinary symptoms: Dysuria, Urgency, Frequency and Hematuria Exacerbating factors: none Relieving factors: none Associated symptoms: denies other symptoms Treatment prior to arrival: none Related Data Home Medications Medication Instructions Recorded Confirmed fluoxetine 20 mg capsule 20 mg PO DAILY 03/03/20 06/25/23 albuterol sulfate 90 mcg/actuation 1 puff inhalation Q4-6H PRN 07/27/22 06/25/23 aerosol inhaler Shortness Of Breath Or Wheezing Allergies Allergy/AdvReac Type Severity Reaction Status Date / Time hydrocodone Allergy Severe rash/itchin Verified 06/25/23 18:08 g scopolamine Allergy Severe Rash Verified 06/25/23 18:08 Review of Systems Review of Systems: All systems reviewed & are unremarkable except as noted in HPI and below Constitutional: Constitutional: Reports as per HPI and Reports no additional constitutional complaints Eyes: Eyes: Reports as per HPI and Reports no additional eye complaints ENT: Reports system reviewed and no additional complaints, except as documented and Reports as per HPI Cardiovascular: Cardiovascular: Reports as per HPI and Reports no additional cardiovascular complaints Respiratory: Respiratory: Reports as per HPI and Reports no additional respiratory complaints Gastrointestinal: Gastrointestinal: Reports as per HPI, Reports no additional gastrointestinal complaints and Reports nausea Genitourinary: Genitourinary: Reports no additional female genitourinary complaints, Reports hematuria, Reports nocturia and Reports dysuria Musculoskeletal: Musculoskeletal: Reports no additional musculoskeletal complaints and Reports as per HPI Integumentary/Breasts: Skin/Breast: Reports system reviewed and no additional complaints, except as docu and Reports as per HPI Neurologic: Reports system reviewed and no additional complaints, except as documented and Reports as per HPI Psychiatric: Psychiatric: Reports no additional psychiatric complaints and Reports as per HPI Endocrine: Endocrine: Reports no additional endocrine complaints and Reports as per HPI Hematologic/Lymphatic: Hematologic/Lymphatic: Reports no additional hematologic/lymphatic complaints and Reports as per HPI Allergic/Immunologic: Allergic/Immunologic: Reports no additional allergic/immunologic complaints and Reports as per HPI PMF Past Medical History Medical History Abnormal uterine bleeding s/p hysterectomy 02/2020 Allergic rhinitis Anxiety Asthma Colonic polyp Encounter for sterilization JACKELINE (obstructive sleep apnea) resolved with loss of weight UTI (urinary tract infection) Surgical History Surgical History H/O basal cell carcinoma excision 07/2015 H/O elbow surgery 2017 H/O gastric sleeve 03/2019 H/O hernia repair Hx of cholecystectomy 09/2014 Family History Family History Mother Cervical cancer had total hysterectomy Sibling Ovarian cancer, Onset Age: 30 Father , age 51 from diabetic complications Diabetes mellitus Heart disease had
[2023-06-25 18:16] LABS: Appearance Urine Cloudy (Clear); Bilirubin Urine Negative (Negative); Blood Urine 3+ (Negative); Color Urine Light Yellow (Yellow); Glucose Urine UA Negative (Negative); Ketones Urine Trace (Negative); Leukocyte Esterase Ur 1+ LEU/UL (Negative); Nitrate Urine Negative (Negative); Protein Urine 3+ (Negative); Specific Grav Ur 1.025 (1.010-1.020)
[2023-06-25 18:22] LABS: Add Urine Microscopic? YES; Bacteria Urine 1+ /hpf; RBC Urine >75 /hpf (0-2); Squamous Epithelial Cell Urine Rare /hpf (Few); WBC Urine 21-30 /hpf (0-3)
[2023-06-25] MEDS: CIPROFLOXACIN 500 MG TAB PO (18:58)
--- NOTE | 2023-06-28 16:00 | PC.NURSE ---
FINAL URINE CULTURE REPORT, NO GROWTH, NO FURTHER TREATMENT OR ACTION NEEDED.
== END 2023-06-25 19:00 | disposition home or self-care (01) ==
PROVIDERS: Emergency Provider Internal Medicine Critical Care Medicine; PCP Internal Medicine
DX: N30.90 Cystitis, unspecified without hematuria (principal)
CPT/HCPCS: 81001; 87086; 99283; A9270

== ENCOUNTER 2023-07-15 14:03 | Outpatient (CLI) | payer OTHER, SELFPAY ==
--- NOTE | ~2023-07-15 | CT_ITS ---
EXAMINATION: CT abdomen pelvis wo con DATE: 07/15/2023 14:39 INDICATION: Left flank pain TECHNIQUE: Computed tomography (CT) of the abdomen and pelvis was performed without intravenous contr ast. The dose-length product (DLP) was 364.04 mGy-cm. Automated exposure control and iterative recons truction technique were employed. COMPARISON: 07/28/2022 FINDINGS: The lung bases are clear. The heart size is normal. There are surgical changes in the stoma ch. The liver, spleen, pancreas, and adrenal glands are normal. Changes of cholecystectomy are noted. The kidneys are unremarkable. No stones are identified in the kidneys, ureters, or bladder. No hydro nephrosis or hydroureter. No pathologically enlarged abdominal or pelvic lymph nodes are identified. No free intraperitoneal gas or evidence of bowel obstruction. The appendix is normal. IMPRESSION: 1. No CT correlate for the patient's symptoms. Reviewed, dictated and finalized at location L. [facility] NURSE
== END 2023-07-15 14:04 | disposition home or self-care (01) ==
PROVIDERS: PCP Internal Medicine; Visit Provider Internal Medicine
DX: R10.9 Unspecified abdominal pain (principal); R31.9 Hematuria, unspecified
CPT/HCPCS: 74176

== ENCOUNTER 2023-09-23 14:30 | Outpatient (CLI) | payer OTHER, SELFPAY ==
--- NOTE | ~2023-09-23 | CT_ITS ---
CT of the Abdomen and Pelvis: Indication: Hematuria Technique: 2.5 mm axial scans were obtained through the abdomen and pelvis prior to and following in travenous administration of 130 cc of Omnipaque 350. Dose reduction technique was used on this scan b y utilizing automated exposure control and iterative reconstruction technique. The dose-length produc t (DLP) was 2058.66 mGy-cm. COMPARISON: 07/15/2023 Findings: Scans through the lung bases are unremarkable. The liver, spleen, pancreas, adrenals and kidneys are within normal limits. Cholecystectomy clips are present. No evidence of aortic aneurysm. No lymphadenopathy. No bowel obstruction or bowel wall thickening. Evidence of prior gastric/bariatric surgery. There is no evidence to suggest acute appendicitis. Images through the pelvis were performed. Urinary bladder unremarkable. 3.3 cm right ovarian cyst pre sent. No other adnexal mass seen. No ascites. Impression: No etiology for hematuria identified. 3.3 cm right ovarian cyst. Reviewed, dictated and finalized at location . Impression: No etiology for hematuria identified. 3.3 cm right ovarian cyst.
== END 2023-09-23 14:31 | disposition home or self-care (01) ==
PROVIDERS: PCP Internal Medicine; Visit Provider Nurse Practitioner
DX: R31.0 Gross hematuria (principal); N83.201 Unspecified ovarian cyst, right side
CPT/HCPCS: 74178; Q9967

== ENCOUNTER 2024-12-20 11:36 | Outpatient (CLI) | payer OTHER, SELFPAY ==
--- OUTSIDE RECORDS SUMMARY | 2024-12-20 11:55 | XMS_ITS ---
Author Organization [facility] [address] [facility] Address [address] [place] [address] Care Team Providers Care Scarf And Anneal Operator Name Role Phone Jak Cottrell MD Primary Care Provider [phone] Active Problems Problem Noted Date Diagnosed Date Acute bronchitis due to chemical 01/28/2023 Allergic rhinitis, unspecified 01/28/2023 Amenorrhea 01/28/2023 Basal cell carcinoma of skin, unspecified 2022 Candidiasis of vagina 01/28/2023 Caries 01/28/2023 Cervicalgia 01/28/2023 Depression 01/28/2023 Dysuria 01/28/2023 Insomnia 01/28/2023 Overweight 01/28/2023 Rosacea, unspecified 01/28/2023 Tooth pain 01/28/2023 Asthma 01/28/2023 Vaginal discharge 01/28/2023 Vaginal itching 01/28/2023 Irritable bowel syndrome with constipation 02/26 Bloating 07/24/2021 Abdominal cramping 07/24/2021 Chronic constipation 04/24/2021 Hx of adenomatous colonic polyps 04/24/2021 Sessile colonic polyp 04/24/2021 Anxiety disorder, unspecified 03/29/2016 Obesity, unspecified 03/29/2016 Seborrhea capitis 03/29/2016 Current Treatment and Therapy Plans No current plan information found. Past Treatment and Therapy Plans No past plan information found. Lifetime Dose Tracking * Chemical Lifetime Dose Automatic Entry Manual Entr y Fluoro Time 0.2 minutes 0.2 minutes 0 minutes Air kerma at the reference point (Ka,r) 1.333 mGy 1 .333 mGy 0 mGy
--- OUTSIDE RECORDS SUMMARY | 2024-12-20 11:55 | XMS_ITS | Continuity of Care Document ---
Author Name [facility] Organization [facility] Care Team Providers Care Kiln Operator Name Role Phone [facility] Unavailable Unavailable Problems Combined list of problems from Department of Defense and Veterans Affairs facilities. It does not include entries that were removed or entered in error. Problem Status Onset Date Problem Type Date of Resolution Comments Source Unspecified asthma, uncomplicated Active 04/08/2017 Condition DoD Anxiety disorder, unspecified Active 03/29/2016 Condition DoD Obesity, unspecified Active 03/29/2016 Condition DoD Seborrhea capitis Active 03/29/2016 Condition D oD Obstructive sleep apnea (adult) (pediatric) Active 04/07/2015 Condition DoD Dietary counseling and surveillance Active 02/28/2015 Condition DoD Allergic rhinitis, unspecified Active Condition DoD Constipation, unspecified Active Condition DoD Rosacea, unspecified Active Condition D oD Sleep apnea, unspecified Active Condition DoD Basal cell carcinoma of skin, unspecified Active Condition DoD Patient Education - Dietary Active Condition DoD vaginal odor Inactive Condition DoD anxiety Active Condition DoD DERMATITIS Inactive Condition DoD CERVICALGIA Active Condition DoD pain during urination (dysuria) Active Condition DoD CONSTIPATION Active Condition DoD Body Mass Index Active Condition DoD OBESITY Active Condition DoD chronic constipation Inactive Condition DoD visit for: exam following treatment Active Condition DoD visit for: screening exam pulmonary tuberculosis Inactive Condition DoD Vaccines Prophylactic Need Against DTP Inactive Condition DoD Need For Vaccination Hepatitis A Inactive Condition DoD visit for: examination of subpopulation Active Condition DoD upper back pain (between shoulder blades) Inactive Condition DoD ANKLE SPRAIN RIGHT Inactive Condition Do D FOOT STRAIN RIGHT Inactive Condition DoD sore throat Inactive Condition DoD Vaccines Prophylactic Need Against Influenza Inactive Condition DoD vaginal itching Active Condition DoD Overweight Active Condition DoD visit for: screening exam malignant neoplasm breast Inactive Condition DoD visit for: screening exam for malignant neoplasm cervix Inactive Condition DoD ROUTINE GYNECOLOGICAL EXAM Inactive Condition DoD headache Inactive Condition DoD PHARYNGITIS Inactive Condition DoD VIRAL SYNDROME Inactive Condition DoD OTITIS MEDIA ACUTE SEROUS BOTH EARS Inactive Condition DoD SINUSITIS Inactive Condition DoD visit for: issue repeat prescription Inactive Condition DoD ALLERGIC RHINITIS Active Condition DoD ACUTE TONSILLITIS Inactive Condition DoD AMENORRHEA Active Condition DoD insomnia Active Condition DoD visit for: screening exam thyroid disorders Inactive Condition DoD visit for: administrative purpose Inactive Condition [facility] Vaginal Discharge Active Condition [facility] visit for: refer patient without exam or treatment Inactive Condition [facility] ANXIETY DISORDER NOS Active Condition D oD ASTHMA Active Condition DoD ACUTE CHEMICAL BRONCHITIS Active Condition DoD Oral Contraceptives Active Condition Do D VAGINITIS CYRIL ALBICANS Active Condition DoD DYSPAREUNIA Active Condition DoD DEPRESSION Active Condition DoD CARIES Active Condition DoD tooth pain Active Condition [facility] CONJUNCTIVITIS Inactive Condition [facility] eye symptoms Inactive Condition [facility] Medications Combined list of outpatient medications from Department of Defense and Veterans Affairs facilities.Medications provided include 1) outpatient medications from the last 15 months, and 2) patient-reported medications. Medication Details Route Status Patient Instructions Prescription Expires Prescription Number Last Dispense Date Ordering Provider Order Date Order Qty Source cetirizine 10 mg oral tablet cetirizi ne 10 mg oral tablet Start Date: 03/08/17 Status: Ordered Repeat number: 1 Ordered 2016 No Facilit y Access doxycycline hyclate 100 mg oral capsule 0 total refill(s ) Ordered 2016 No Facilit y Access ketoconazol e 2% topical shampoo ketocona zole 2% topical shampoo Start Date: 03/08/17 Status: Ordered Repeat number: 1 Ordered 2016 No Facilit y Access metroNIDAZO LE 500 mg oral tablet 0 total refill(s ) Ordered 2016 No Facilit y Access mupirocin 2% topical ointment mupiroci n 2% topical ointment Start Date: 03/08/17 Status: Ordered Repeat number: 1 Ordered 2016 No Facilit y Access oxaprozin 600 mg oral tablet oxaprozi n 600 mg oral tablet Start Date: 03/08/17 Status: Ordered Repeat number: 1 Ordered 2016 No Facilit y Access sulfacetami de sodium-sulf ur 9.8%-4.8% topical liquid sulfacet amide sodium-s ulfur 9.8%-4.8 % topical liquid Start Date: 03/08/17 Status: Ordered Repeat number: 1 Ordered 2016 No Facilit y Access Allergies, Adverse Reactions, Alerts Combined list of allergies from Department of Defense and Veterans Affairs facilities. It does not include entries that were removed or entered in error. Substance Category Reaction Severity Reaction type Status Date Reported Comments Source acetaminop hen-hydroc odone Propensity to adverse reactions to substance Urticaria Active 1 Unknown Organizatio n VICODIN (HYDROCODO NE BIT/ACETAM INOPHEN) Drug allergy (disorder) Urticaria active 1 [facility] Immunizations Combined list of available immunizations from the Department of Defense and Veterans Affairs facilities. Immunization Series Date Given Administered By Site Reaction Lot Number CVX Code Drug Clinical Application Specialist Status Comments Source influenza virus vaccine, unspecified 2015 Body, whole [id number] complet ed influenza virus vaccine, unspecifi ed 01/19/16 Given Ambulat ory Pharmac y tuberculin purified protein derivative 2015 zzRig ht Arm [id number] complet ed Patient Tolerance : Negative Ambulat ory Pharmac y influenza virus vaccine, unspecified formulation 0 2015 [id number] Transcribed (TRS) complet ed influenza virus vaccine, unspecifi ed formulati on DoD tuberculin skin test; purified protein derivative solution, intradermal 0 2015 CHRISTY BLACKMAN [id number] [employer] 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 (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 AGENT) complet ed tuberculi n skin test; purified protein derivativ e solution, intraderm al DoD influenza, injectable, quadrivalent- pf 2014 zzLef t Arm [id number] 150 Unknown complet ed influenza , injectabl e, quadrival ent-pf 04/24/15 Given Ambulat ory Pharmac y Influenza, injectable, quadrivalent, preservative free 1 2014 EDUARDO HARRELL [id number] 150 Other (OTH) complet ed Influenza , injectabl e, quadrival ent, preservat manav free DoD influenza, seasonal, injectable-pf 2013 zzLef t Arm [id number] 140 sanofi pasteur complet ed influenza , seasonal, injectabl e-pf 03/10/14 Given Ambulat ory Pharmac y Influenza, seasonal, injectable, preservative free 1 2013 GREGORIO STEINER [id number] 140 Sanofi Pasteur ([facility]) complet ed Influenza , seasonal, injectabl e, preservat manav free DoD influenza, seasonal, injectable-pf 2013 zzLef t Arm 1341 2P 140 Novartis Pharmaceutica complet ed influenza , seasonal, injectabl e-pf 07/20/13 Given Ambulat ory Pharmac y Influenza, seasonal, injectable, preservative free 1 2013 SANDIE OWENS 1341 2P 140 Novartis Pergunter. (NOV) complet ed Influenza , seasonal, injectabl e, preservat manav free DoD tetanus, diphtheria, acellular pertu is [facility] [id number] 115 GlaxoSmithKli ne complet ed tetanus, diphtheri a, acellular pertussis 12/22/12 Given Ambulat ory Pharmac y tuberculin purified protein derivative 2012 zzLef t Arm [id number] sanofi pasteur complet ed Patient Tolerance : Negative Ambulat ory Pharmac y hepatitis A adult vaccine 2012 zzLef t Arm [id number] 52 GlaxoSmithKli ne complet ed hepatitis A adult vaccine 12/22/12 Given Ambulat ory Pharmac y tetanus toxoid, reduced diphtheria toxoid, and acellular pertu is vaccine, adsorbed 1 2012 OVI PROCTOR [id number] 115 [facility] ed tetanus toxoid, reduced diphtheri a toxoid, and acellular pertussis vaccine, adsorbed DoD hepatitis A vaccine, adult dosage 1 2012 OVI PROCTOR [id number] 52 Smithine (SKB) complet ed hepatitis A vaccine, adult dosage DoD tuberculin skin test; purified protein derivative solution, intradermal 0 2012 OVI PROCTOR [id number] Sanofi Pasteur ([facility]) complet ed tuberculi n skin test; purified protein derivativ e solution, intraderm al DoD influenza virus vaccine, whole virus 2011 zzLef t Arm [id number] CSL Behring complet ed influenza virus vaccine, whole virus 03/23/12 Given Ambulat ory Pharmac y influenza virus vaccine, whole virus 1 2011 KEN BINGHAM [id number] CS [employer] (CSL) complet ed influenza virus vaccine, whole virus DoD measles/mumps /rubella virus vaccine 1992 Body, whole TRANSCR IBED 03 complet ed measles/m umps/rube lla virus vaccine 01/08/93 Given Ambulat ory Pharmac y measles, mumps and rubella virus vaccine 2 1992 03 Transcribed (TRS) complet ed measles, mumps and rubella virus vaccine DoD poliovirus vaccine, live, oral 1987 Body, whole TRANSCR IBED 02 complet ed polioviru s vaccine, live, oral 08/02/87 Given Ambulat ory Pharmac y diphtheria/te tanus toxoids/pertu is 1987 Body, whole TRANSCR IBED 01 complet ed diphtheri a/tetanus toxoids/p ertussis 08/02/87 Given Ambulat ory Pharmac y diphtheria, tetanus toxoids and pertu is vaccine 5 1987 01 Transcribed (TRS) complet ed diphtheri a, tetanus toxoids and pertussis vaccine DoD trivalent poliovirus vaccine, live, oral 0 1987 02 Transcribed (TRS) complet ed trivalent polioviru s vaccine, live, oral DoD measles/mumps /rubella virus vaccine 1985 Body, whole TRANSCR IBED 03 complet ed measles/m umps/rube lla virus vaccine 09/01/85 Given Ambulat ory Pharmac y poliovirus vaccine, live, oral 1985 Body, whole TRANSCR IBED 02 complet ed polioviru s vaccine, live, oral 09/01/85 Given Ambulat ory Pharmac y diphtheria/te tanus toxoids/pertu is 1985 Body, whole TRANSCR IBED 01 complet ed diphtheri a/tetanus toxoids/p ertussis 09/01/85 Given Ambulat ory Pharmac y diphtheria, tetanus toxoids and pertu is vaccine 4 1985 01 Transcribed (TRS) complet ed diphtheri a, tetanus toxoids and pertussis vaccine DoD trivalent poliovirus vaccine, live, oral 4 1985 02 Transcribed (TRS) complet ed trivalent polioviru s vaccine, live, oral DoD measles, mumps and rubella virus vaccine 1 1985 03 Transcribed (TRS) complet ed measles, mumps and rubella virus vaccine DoD poliovirus vaccine, live, oral 1982 Body, whole TRANSCR IBED 02 complet ed polioviru s vaccine, live, oral 82 Given Ambulat ory Pharmac y diphtheria/te tanus toxoids/pertu is 1982 Body, whole TRANSCR IBED 01 complet ed diphtheri a/tetanus toxoids/p ertussis 82 Given Ambulat ory Pharmac y diphtheria, tetanus toxoids and pertu is vaccine 3 1982 01 Transcribed (TRS) complet ed diphtheri a, tetanus toxoids and pertussis vaccine DoD trivalent poliovirus vaccine, live, oral 3 1982 02 Transcribed (TRS) complet ed trivalent polioviru s vaccine, live, oral DoD poliovirus vaccine, live, oral 1982 Body, whole TRANSCR IBED 02 complet ed polioviru s vaccine, live, oral 82 Given Ambulat ory Pharmac y diphtheria/te tanus toxoids/pertu is 1982 Body, whole TRANSCR IBED 01 complet ed diphtheri a/tetanus toxoids/p ertussis 82 Given Ambulat ory Pharmac y diphtheria, tetanus toxoids and pertu is vaccine 2 1982 01 Transcribed (TRS) complet ed diphtheri a, tetanus toxoids and pertussis vaccine DoD trivalent poliovirus vaccine, live, oral 2 1982 02 Transcribed (TRS) complet ed trivalent polioviru s vaccine, live, oral DoD poliovirus vaccine, live, oral 1981 Body, whole TRANSCR IBED 02 complet ed polioviru s vaccine, live, oral 82 Given Ambulat ory Pharmac y diphtheria/te tanus toxoids/pertu is 1981 Body, whole TRANSCR IBED 01 complet ed diphtheri a/tetanus toxoids/p ertussis 82 Given Ambulat ory Pharmac y diphtheria, tetanus toxoids and pertu is vaccine 1 1981 01 Transcribed (TRS) complet ed diphtheri a, tetanus toxoids and pertussis vaccine DoD trivalent poliovirus vaccine, live, oral 1 1981 02 Transcribed (TRS) complet ed trivalent polioviru s vaccine, live, oral DoD Encounters Combined list of: 1) Encounters from Department of Veterans Affairs facilities going backup to the last 18 months, not all VA inpatient encounters are included; 2) Encounters from the Department of Defense facilities going backup to 280 months. Location Location Details Encounter Type Encounter Number Reason For Visit Attending Provider ADM Date DC Date Status Disposition Source [facility] [place] TELE CONSULT [id number] head lice MYRA MOSS 12/19 [facility] [place] [facility] [facility]) [facility] [place] TELE CONSULT [id number] possibl e pink eye GLENNY JULIEN 03/10 Referred for Appointment [facility] [place] [facility] [facility] [place]) OUTPATIENT [id number] possibl e pink eye VICKIE VALENZUELA 03/10 Released w/o Limitations [facility] [place] [place] [facility]) [facility] [place] TELE CONSULT [id number] pt has a painful wisdom tooth - - dj MYRA MOSS 04/28 Referred for Appointment [facility] [place] [facility] [place]) [place]PAT[place] [id number] toothac MAUDE Alcocer aPdma 04/28 Released w/o Limitations [facility] [place] [place] [facility] [place]) OUT[place] [id number] TERA LITTLEJOHN 05/01 Released w/o Limitations [facility] [place] [facility] [place]) [place] [id number] GODWIN Glover 08/20 Released w/o Limitations [facility] [place] [facility] [place]) [place] [id number] possibl e yeast infecti on,no menses for 6 months THERESA WORKMAN 09/19 Released w/o Limitations [facility] [place] [facility] [place]) [place] [id number] possibl e yeast infecti on DAYSI FULLER 09/20 Released w/o Limitations [facility] [place] [facility]) TELE CONSULT [id number] pt was seen for vaginal infecti on still having odor would like to know if you... MICHAEL WARREN 10/03 Referred for Appointment [facility] [place]) OUTPATIENT [id number] f/up for medicat ion GODWIN ARIAS 10/18 Released w/o Limitations [facility] [facility]) OUTPATIENT [id number] extreme sore throat PETERSASHA UTE Joby 10/21 Released w/o Limitations [facility] [place] [place]) TELE CONSULT [id number] to review labs GODWIN ARIAS 10/30 [facility] [place] [place]) TELE CONSULT [id number] pt needs refills on ambien 5mg (pt would like strengt h increas ed) and singula ir... MICHAEL WARREN 12/11 Referred for Appointment [facility] [place] [place]) OUTPATIENT [id number] appt for medicat ion assessm ent and DAYSI Mcneil 12/12 Released w/o Limitations [facility] [place]) [facility] [place]) TELE CONSULT [id number] pt request s renewal script and RX for anxiety /depres pako. call /d DAYSI Quevedo 02/04 [facility] [place] OUTPATIENT [id number] Cough, Poss respira tory infecti on, chest pain CURTIS VALENZUELAVIBHA Cortez 02/17 [place]ased w/o Limitations [place] OUT[place] [id number] needs medicat ion change DAYSI FULLER 06/12 [place] w/o Limitations [place] [id number] headach e,sore throat, fever,u pset stomach MELITA LINCOLN 07/10 [place] w/o Limitations [place] [id number] ESPINOZA, sore throat, bilater al ear pain, vomitin g MELITA LINCOLN 07/15 [place]ased w/o Limitations [place] TELE CONSULT [id number] pt needs refill on antidep ressant (forgot name) - - dj MICHAEL WARREN Diego 07/19 [place] Appoint[place] [id number] sick for 2weeks, migrain es,vomi ting,co ugh,tig ht chest,o n antibio tic since friday BIANCA VICKIE Cortez 07/19 [place] w/o Limitations [place] TELE CONSULT [id number] Notes Entered by: GILBERTO MORALES 07 Jan 2012 1016 ------- ------- ------- ------- -- Pcm lettier e; med refill DAYSI FULLER 01/06 [facility] [place] [place]) OUTPATIENT [id number] PCM Mr Love mcnair; Well Women with PAP (BC) DAYSI FULLER IFEANYI 03/23 Released w/o Limitations [facility] [place] [place] [facility] [place] [place] TELE CONSULT [id number] Notes Entered by: DEE IRVIN 21 Apr 2012 1150 ------- ------- ------- ------- -- PCM Mr Love mcnair - patient is request ing order for special shampoo COON, KEN L 04/21 Medication Refill Forwarded [facility] [place] [facility] [place] [place] TELE CONSULT [id number] Notes Entered by: DEE IRVIN 03 Aug 2012 1154 ------- ------- ------- ------- -- PCM Mr Love mcnair - patient would like to go to outside [facility] LIBIA CORNEJO 08/03 [facility] for [facility] [place] [place] [place] OUTPATIENT [id number] pcm is love mcnair/ right ankle &foot pain,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 DAYSI FULLER 11/03 Released w/o Limitations [facility] [place] [place] [facility] [place] [place] OUTPATIENT [id number] PCM Mr Love mcnair - hurt back LOVEXu DAYSI IFEANYI 11/18 Released w/o Limitations [facility] [place] [place]) [facility] [place] [place] OUTPAT[place] [id number] [place] 07 DANIELA SANDS 12/10 [place]ased w/o Limitations [place] [facility] [place] [facility] [place] TELE CONSULT [id number] Notes Entered by: LISBETH FLORES 17 Dec 2012 1124 ------- ------- ------- ------- -- Medicat ion Refill / PCM: DAYSI Overton 12/17 [facility] [place] [facility] [place] [id number] Notes Entered by: GUILLERMINA HARPER SA 22 Dec 2012 1410 ------- ------- ------- ------- -- IMMS UPDATE DAYSI FULLER 12/22 [place] w/o Limitations [place] [place] [facility] [place] [id number] Notes Entered by: Rosie GRANT 25 Dec 2012 1135 ------- ------- ------- ------- -- PCM: LOVE Mcnair, TB TEST NICKY LARSON 12/25 [place]ased w/o Limitations [place] [place] [place] OUTPATIENT [id number] Pavan/MARIO Malik 05/11 [place] w/[place] Limitations [place]) [place] [facility] [place] OUTPATIENT [id number] f/up on depo/#1 depo shot in FM/.. pcm xu corcoran SUZANNA N 07/05 [place] w/o Limitations [place] [facility] [place] [id number] PROC: MINOR/O RAL CONTRAC EPTIVES (MIRENA ) TIFFANIE PINK 07/08 [place] [facility] [place] [id number] uti/ pcm xu corcoran LUKE MONELL 08/27 [place] [facility] [place] [place] TELE CONSULT [id number] Notes Entered by: Padma PELAEZ 06 Sep 2013 1327 ------- ------- ------- ------- -- NO SHOW RONAL PELAEZ 09/06 [place] [place] [facility] [facility] [place] [id number] neck pain / pinched RONDA MONDRAGON 09/22 Released w/o Limitations [facility] [place] [facility] [facility] [place] TELE CONSULT [id number] Notes Entered by: COBY ELMORE 23 Sep 2013 1003 ------- ------- ------- ------- -- Xray result RONDA MONDRAGON 09/23 [facility] [facility] [place] [facility] [place] TELE CONSULT [id number] Notes Entered by: ANDRE SOUZA 06 Oct 2013 1108 ------- ------- ------- ------- -- Xu Corcoran: Renew Fluoxet ine 20mg (or x-tra tabs till appt) to [facility] # ROSITA CORCORAN 10/06 [place] [place] [facility] [facility] [place] [id number] NIDA FERNANDO 10/14 Released w/o Limitations [facility] [facility] [place] [facility] [place] TELE CONSULT [id number] Notes Entered by: COBY ELMORE 25 Oct 2013 1222 ------- ------- ------- ------- -- MRI result RONDA MONDRAGON 10/25 [facility] [facility] [place] [facility] [place] TELE CONSULT [id number] Notes Entered by: LACHELLE NARVAEZ 29 Nov 2013 1457 ------- ------- ------- ------- -- MELITA Wray 11/30 [facility] [facility] [place] [facility] [facility] [place] [id number] yeast infecti on or uti// pcm CHERRIE Chavarria 03/10 Released w/o Limitations [facility] [facility] [place] [facility] [facility] [place] TELE CONSULT [id number] Notes Entered by: Princess MIRELES 15 Mar 2014 1155 ------- ------- ------- ------- -- results CHERRIE GONZALEZ 03/15 [facility] [facility] [place] [facility] [facility] [place] [id number] eye redness chk. ROMMEL Avalos 04/22 Released w/o Limitations [facility] [place] [facility] [place] [id number] prevent ion issues MELITA MIRELES 05/10 Released w/o Limitations [facility] [facility] [place] [facility] [facility] [place] [id number] well woman pap MELITA MIRELES 05/17 Released w/o Limitations [facility] [place] [facility] TELE CONSULT [id number] Notes Entered by: CISCO SALAS 30 May 2014 1435 ------- ------- ------- ------- -- PAP RESULTS MELITA MIRELES 05/31 [facility] [facility] [facility] [facility] OUT[place] [id number] PROC: implano n placeme ntPap Smear ROBERTO MISTRYA 06/15 Released w/o Limitations [facility] [facility] [facility] [facility] [place] OUT[place] [id number] [facility] Princess MIRELES/[place] KEENAN CUETOAR GE AND DAVID ALVAREZ 07/26 Released w/o Limitations [facility] [facility] [place] [facility] [id number] SALLY HUERTAS 08/08 Released w/o Limitations [facility] [facility] F[facility]B [place] OUTPATIENT [id number] post er visit: back pain 48hr er f/u appt w/ pcc FLOR EL 08/08 Released w/o Limitations [facility] F[facility] [place] [facility] [place] DIRECT TO [facility] FROM OTHER THAN ER OR [facility] [id number] RONAL MALIK 08/11 DISCHARGED HOME [facility] [place] [facility] R[place]) OUTPATIENT [id number] LATESHA MURILLO 08/15 Released w/o Limitations [facility] [facility] [facility] [id number] acute cholecy stitis RONAL MALIK 08/25 Released w/o Limitations [facility] [place] [facility] [facility]) OUTPATIENT [id number] NIRANJAN GARDINER 10/04 Released w/o Limitations [facility] [facility] F[facility]B Winn[place] OUTPATIENT [id number] uti symptom s and vaginal odor TY APODACA 10/27 Released w/o Limitations [facility] [place] [facility] [place] TELE CONSULT [id number] Notes Entered by: CIARA GARCIA 21 Nov 2014 1114 ------- ------- ------- ------- -- PCM: Alexx; ER follow up SEAN FRAGOSO 11/21 [place]erred for Appointment [facility] [place] [facility] [place]) [place] [id number] DIONISIO ROMERO 11/23 Released w/o Limitations [facility] [facility] [facility] [id number] MICROSC OPIC HEMATUR BETINA GASPAR, BERNA PERLA 01/11 Released w/o Limitations [facility] [facility] [place] [place] OUTPATIENT [id number] Flick: Discuss Gastric Sleeve Surg MELITA MIRELES 01/18 Released w/o Limitations [facility] [place] [place] [facility] [place] [place] [facility] [id number] OBESITY CARMEN KRUEGER 01/27 Released w/o Limitations [facility] [place] [facility] [place] [facility] [id number] BARIJUSTINA IC INFORMA TION SESSION LATESHA QUACH 01/31 Released w/o Limitations [facility] [place] [facility] [place] OUTPATIENT [id number] referra l sleep study EDUARDO YOO 02/01 Released w/o Limitations [facility] [place] [place] [facility] [place] Multi-D Lean Prog TR) OUTPATIENT [id number] FREDERICK ALANIS 02/06 Released w/o Limitations [facility] [place] Multi[facility]D [facility] [facility] [place] [id number] SLEEP DISORDE R MOISES MARTELL 02/14 Released w/o Limitations [facility] [facility] [facility] [id number] cysto/p elvic exam ALEKSANDAR MORALES Diego 02/15 Released w/o Limitations [facility] [facility]ZZAMH F05C SB White[place] TELE CONSULT [id number] Notes Entered by: THERESA MARSH 24 Feb 2015 1407 ------- ------- ------- ------- -- Notific ation of Network Results MARLENY EGAN 02/25 [facility] F05C SB [place] [facility] Multi-D Lean Prog TR) OUTPATIENT [id number] FREDERICK ALANIS 02/28 Released w/o Limitations [facility] Multi-D Lean Prog TR) [facility] [facility] OUTPATIENT [id number] Notes Entered by: Bailey NICOLAS 28 Feb 2015 1204 ------- ------- ------- ------- -- Bariatr ic class ARVIND NICOLAS 02/28 Released w/o Limitations [facility]) [facility] OUTPATIENT [id number] BARIATR IC EDUCATI ON GROUP LATESHA QUACH 02/28 Released w/o Limitations [facility] [facility] Multi-D Lean Prog TR) OUTPATIENT [id number] FREDERICK ALANIS 03/03 Released w/o Limitations [facility] Multi-D Lean Prog TR) [facility] Multi-D Lean Prog TR) OUTPATIENT [id number] FREDERICK ALANIS 03/30 Released w/o Limitations [facility] Multi-D Lean Prog TR) [facility] [facility] OUTPATIENT [id number] BARIATR IC SURGERY PATIENT LATESHA QUACH 03/30 Released w/o Limitations [facility] [facility] [place] [facility] TELE CONSULT [id number] Notes Entered by: SALMATHERESA 07 Apr 2015 1550 ------- ------- ------- ------- -- Notific ation of Network Results CAITIEMOISES BRITTON Marlen 04/08 [facility] [place], [place] F[facility] OUTPATIENT [id number] F/U sleep study PANKAJ KINGRY 04/24 Released w/o Limitations [facility] [place] [place] [facility] [place] Multi-D Lean Prog TR) OUTPATIENT [id number] FREDERICK ALANIS 04/26 Released w/o Limitations [facility] [place] Multi-D Lean Prog [facility] [facility] [place] Multi-D Lean Prog TR) OUTPATIENT [id number] FREDERICK ALANIS 05/10 Released w/o Limitations [facility] [place] Multi-D Lean Prog [facility] [facility] [place] OUTPATIENT [id number] PROC:Kylah velásquez g, mass and lump, trunk TY APODACA 06/01 Released w/o Limitations [facility]Fami [place] Medicin [place] [facility] [facility] [id number] Notes Entered by: MINI SZYMANSKI 02 Jun 2015 1406 ------- ------- ------- ------- -- fit and issue of cam walking dorianot KEERTHI BARROSO 06/03 Released w/o Limitations [facility] [place] [facility] [place] [facility] OUTPATIENT [id number] CLEMENTINE LEIZABETH 06/05 Released w/o Limitations [facility] [place] [facility] [place] OUTPATIENT [id number] [facility] surgery cyril te, initial consult FLOR GOMEZ 06/06 Released w/o Limitations [facility] [place] [facility] [place] [place] TELE CONSULT [id number] Notes Entered by: SHANDA CHILDRESS 07 Jun 2015 1554 ------- ------- ------- ------- -- test results SHANDA LYNNE Bailey 06/08 [facility] F[facility] [place] [facility] [place] F03B Winn) OUTPATIENT [id number] suture removal post op 8 days; pcm: GREG Petit 06/09 Released w/o Limitations [facility] [place] F03B Winn) [facility]PATIENT [id number] Basal cell carcino ma of skin, unspeci simeon HENRI MCCANN 06/15 Released w/o Limitations [facility] [facility] Multi-D Lean Prog TR) OUTPATIENT [id number] FREDERICK ALANIS 06/20 Released w/o Limitations [facility] Multi-D Lean Prog TR) [facility] [place]) OUTPATIENT [id number] surgery per HENRI Narvaez 07/14 Released w/o Limitations [facility] [facility] [place] OUTPATIENT [id number] Notes Entered by: TAYLA GOODWIN 24 Jul 2015 1256 ------- ------- ------- ------- -- Suture removal HENRI MCCANN Released w/o Limitations [facility]) [facility] [place] F03B Winn) OUTPATIENT [id number] f/u on sleep study MELITA MIRELES 08/09 Released w/o Limitations [facility] F[facility] [place] M01A Red) OUTPATIENT [id number] EDGARDO Earl 01/04 Released w/o Limitations [facility] [place]([facility] M01A Red) [place]) OUTPATIENT [id number] Notes Entered by: Diego ESCALERA 19 Jan 2016 0938 ------- ------- ------- ------- -- [facility]: IMMS TB SY MUNGUIA 01/18 Released w/o Limitations [facility] [place]([facility]) [facility] [place]([facility] M01A Red) OUTPATIENT [id number] tb test read CHRISTY BLACKMAN 01/21 Released w/o Limitations [facility] [place]([facility] M01A Red) [facility] [place]([facility] M01A Red) OUTPATIENT [id number] joint pain , elbow,m ed refills ANASTACIO FERGUSON 03/28 Released w/o Limitations [facility] [place]([facility] M01A Red) [facility] [place] OUTPATIENT [id number] carpal tunnel braces [facility] 04/02 Released w/o Limitations [facility] [place]) [facility] [place]([facility] M01A Red) OUTPATIENT [id number] l elbow ANASTACIO FERGUSON 06/03 Released w/o Limitations [facility] [place]([facility] M01A Red) [facility] [place]([facility] M01B White) TELE CONSULT [id number] Notes Entered by: BIRGIT CURIEL 04 Jun 2016 1341 ------- ------- ------- ------- -- Care Coordin LUCIAN Rubalcava 06/04 Referred for Appointment [facility] [place]([facility] M01B White) [facility] [place]([facility] M01A Red) OUTPATIENT [id number] mony HA RENAE Rashid 06/19 Released w/o Limitations [facility] [place]([facility] M01A Red) [facility] [place]([facility] M01A Red) TELE CONSULT [id number] Notes Entered by: NATASHA GASPAR 24 Jun 2016 1120 ------- ------- ------- ------- -- Lab results . SHANDRA HABailey Mike 06/24 [facility] [place]([facility] M01A Red) [facility] [place]([facility] M01A Red) TELE CONSULT [id number] Notes Entered by: KANDI ALMEIDA 23 Jul 2016 1541 ------- ------- ------- ------- -- Questio n from patient via [facility] KANDI ALMEIDA 07/23 Released to Self Care [facility] [place]([facility] M01A Red) [facility] [place]([facility]H M01A Red) TELE CONSULT [id number] Notes Entered by: KANDI ALMEIDA 23 Sep 2016 1519 ------- ------- ------- ------- -- Physica l Therapy Note from ANASTACIO AHN 09/23 [facility] [place]([facility] M01A Red) [facility] [place]([facility] M01A Red) TELE CONSULT [id number] Notes Entered by: Jany BLACKMAN 01 Nov 2016 0759 ------- ------- ------- ------- -- CHRISTY PARDO 11/01 Other Not Elsewhere Classified [facility] [place]([facility] M01A Red) [facility] [place]([facility] M01A Red) OUTPATIENT [id number] Xtreme sore throat BOBO, RUBY Rouse 11/05 Released w/o Limitations RElizabeth [place] M01A Red) RElizabeth [place] M01A Red) OUTPATIENT [id number] ANASTACIO REYNA 11/18 Released w/o Limitations R. Donita [place]ouse [place]([facility] M01A Red) [place]lizabeth [place] M01A Red) TELE CONSULT [id number] Notes Entered by: Padma FERGUSON 19 Nov 2016 1741 ------- ------- ------- ------- -- please call rx to [facility] -send rh to pt KANDI ALMEIDA 11/20 Released to Self Care [facility] [place]([facility]H M01A Red) Jennifer [place] M01A Red) TELE CONSULT [id number] Notes Entered by: KANDI ALMEIDA 29 Nov 2016 1406 ------- ------- ------- ------- -- Recent Pap Results KANDI ALMEIDA 11/29 Released to Self Care [facility] [place]([facility]H M01A Red) Jennifer [place] M01A Red) OUTPATIENT [id number] possibl e uti ANASTACIO FERGUSON 04/08 Released w/o Limitations [place] [place]([facility] M01A Red) [facility] [place]([facility] M01A Red) OUTPATIENT [id number] med f/u ANASTACIO FERGUSON 05/05 Released w/o Limitations [place]lizabeth [place]([facility] M01A Red) [facility] [place]([facility]H M01A Red) OUTPATIENT [id number] F/U ON MEDS ANASTACIO FERGUSON Padma 06/27 Released w/o Limitations [facility] [place]([facility]H M01A Red) [facility] [place]([facility]H M01A Red) OUTPATIENT [id number] Nexplan on removal /reinse rt ALIDA, XAVI Rouse 07/23 Released w/o Limitations [facility] [place]([facility] M01A Red) [facility] [place]([facility]H M01A Red) TELE CONSULT [id number] Notes Entered by: NICKY CARTAGENA 16 Oct 2017 1218 ------- ------- ------- ------- -- [facility] NICKY CARTAGENA 10/16 Referred for Appointment [facility] [place]([facility] M01A Red) [facility] [place](AMH M01B White) OUTPATIENT [id number] SURGERY FOR ELBOW NEEDS LABS AND XRAYS , MED REFILLS YURY ANN 12/09 Released w/o Limitations [facility] [place]([facility] M01B White) [facility] [place]([facility]H M01B White) OUTPATIENT [id number] EKG Pre-Op KRISTINE ROSE 12/23 Released w/o Limitations [facility] [place]([facility] M01B White) [facility] [place]([facility]H M01B White) OUTPATIENT [id number] 2 Weight loss surgery consult KELLE Bloom 07/10 Released w/o Limitations [facility] [place]([facility] M01B White) [facility] [place]([facility]H M01B White) OUTPATIENT [id number] nutriti on consult JESSICA HALL 09/21 Released w/o Limitations [facility] [place]([facility] M01B White) [facility] [place]([facility] M01B White) OUTPATIENT [id number] 1 allergy DONITA Alvarez 11/03 Released w/o Limitations Jennifer [place]ouse [place]([facility] M01B White) [place] M01B White) OUTPATIENT [id number] 1 nexplan on removal ANABELLA ECHOLS S 12/03 Released w/o Limitations Jennifer [place]ouse [place]([facility] M01B White) [facility] [place]([facility] M01B White) OUTPATIENT [id number] Notes Entered by: HAYDER WILEY 10 Dec 2018 1519 ------- ------- ------- ------- -- Care Coordin ation - Referra ls for [facility] LUCIAN SLADE 12/10 Released w/o Limitations [facility] [place]([facility] M01B White) [facility] [place]([facility] M01B White) TELE CONSULT [id number] Notes Entered by: Jany WANG 11 Jan 2019 1257 ------- ------- ------- ------- -- Secure Message -Med SIDDHARTH Bloom 01/11 Advice Assessment [facility] [place]([facility] M01B White) [facility] [place]([facility] M01B White) OUTPATIENT [id number] Notes Entered by: HAYDER WILEY 11 Jan 2019 1303 ------- ------- ------- ------- -- Care Coordin ation - Informa tion about Bariatr ic Surgery LUCIAN SALDE 01/11 Released w/o Limitations [facility] [place]([facility] M01B White) [facility] [place]([facility] M01B White) TELE CONSULT [id number] Notes Entered by: DONITA NOVAK 19 Jan 2019 1312 ------- ------- ------- ------- -- Labs DONITA NOVAK 01/19 [facility] [place]([facility] M01B White) [facility] [place]([facility] M01B White) OUTPATIENT [id number] 2 Counts Include [facility] adrián sleeve surgery clearan DONITA Ortiz 01/20 Released w/o Limitations [facility] [place]([facility] M01B White) [facility] [place]([facility] M01B White) OUTPATIENT [id number] Notes Entered by: HAYDER WILEY 04 Feb 2019 1439 ------- ------- ------- ------- -- [facility] LUCI[facility] Campos 02/04 Released w/o Limitations [facility] [place]([facility] M01B White) [facility] [place]([facility] M01B White) TELE CONSULT [id number] Notes Entered by: Daniel TESFAYE 06 Apr 2019 1312 ------- ------- ------- ------- -- Medicat ion refill KARSTEN TESFAYE 04/06 Released to Self Care [facility] [place]([facility] M01B White) [facility] [place]([facility]) OUTPATIENT [id number] 1 OBESITY , UNSPECI FIED, h&p update, [id number] v MARIO BATES 04/07 Released w/o Limitations [facility] [place]([facility]) [facility] [place] DIRECT TO TXF FROM OTHER THAN ER OR [facility] [id number] MARIO BATES 04/07 DISCHARGED HOME [facility] [place] [facility] [place]([facility]) TELE CONSULT [id number] Notes Entered by: SHAKEEL VALENCIA 12 Apr 2019 1349 ------- ------- ------- ------- -- Bariatr ic surgery D/C, F/U call. MARIO BATES 04/12 [facility] [place] [place] [place] [place] OUTPATIENT [id number] 3 staff-s /p anshu anderson v, CHRISTOPHE R R 04/13 Released w/o Limitations [facility] [place] [place]) [facility] [place]) TELE CONSULT [id number] Notes Entered by: SHAKEEL VALENCIA 05 May 2019 1105 ------- ------- ------- ------- -- Bariatr ic surgery 30 day, F/U call. MARIO BATES R 05/05 [facility] [place]) [facility] [place] TELE CONSULT [id number] Notes Entered by: SHAKEEL VALENCIA 01 Sep 2019 1324 ------- ------- ------- ------- -- Bariatr ic surgery long winder tender, F/U call. MARGIE MURGUIA 08/31 [facility] [place]([facility]) Procedures Combined list of: 1) Procedures from Department of Veterans Affairs facilities [facility], not all VA non-surgical procedures are included; 2) All procedures from the Department of Defense facilities. Procedure Procedure Type Code Date Perfomer Comments Sourc e No data available for this section [facility] Medical Nutrition Therapy Initial A e ment, Intervention Medical Nutrition Therapy Initial Assessment, Intervention 62463 09/21 JESSICA HALL [facility] Preventive Medicine Physical Exam Weight Recorded Preventive Medicine Physical Exam Weight Recorded 07/10 KELLE BLACK [facility] ECG 12-Lead ECG 12-Lead 3120F 12/23 KRISTINE AGUSTIN EKG performed in clinic and showed to Dr. Hein. Dr. Parisi signed and original sent to referrals to scan into [facility]. [facility] Electrocardiogram Electrocardiogra m 39115 12/23 KRISTINE AGUSTIN EKG performed in clinic and showed to Dr. Hein. Dr. Parisi signed and original sent to referrals to scan into [facility]. [facility] Internet Med Svc Qual Nonphys Healthcare Prof Estab Patient Internet Med Svc Qual Nonphys Healthcare Prof Estab Patient [id number] 10/16 NICKY CARTAGENA [facility] Case Management, each 15 minutes 10/16 NICKY CARTAGENA Acuity level 1 total time 120 minutes with coordination of a service and individual emotional support [facility] Coordinated care fee, maintenance rate 10/16 NICKY CARTAGENA [facility] Etonogestrel (contraceptive) implant system, including implant and supplies 07/23 XAVI IRWIN Nexplanon Implant Lot # [id number] Lidocaine 1% Lot # [id number] Exp - 24 OCT 2018 [facility] Non-Biodegradable Drug Deliv Implant, Removal W/ Insertion Non-Biodegradabl e Drug Deliv Implant, Removal W/ Insertion 62360 07/23 XAVI IRWIN Patient had her current Nexplanon Implant removed from her left arm in clinic today by Dr. Irwin and then a new Nexplanon Implant inserted into her left arm. Patient tolerated the procedure well. [facility] Etonogestrel (contraceptive) implant system, including implant and supplies 07/01 KANDI ALMEIDA Non-Biodegradable Drug Deliv Implant, Removal W/ Insertion Non-Biodegradabl e Drug Deliv Implant, Removal W/ Insertion [id number] 07/[address] Supervised Injection Intramuscular Supervised Injection Intramuscular 53484 11/05 RUBY BOBO Kenalog, 40mg /ml; Mfr. kontakt.io-Francisca Squibb; lot#--[id number]; exp 01/2018; 1ml administered, in clinic, into left ventral-gluteal muscle, after pt. ID by full name and . Pt. tolerated well . Rocephin 1mg; Mfr--Sagent; lot# [id number]; -02/2018; mixed with lidocaine 1% 2.1mls. Injected into Right Ventral-gluteal muscle. Pt. tolerated well. Given in clinic. Pt. asked to remain in clinic x15-20 min., for observation. [facility] Case Management, each 15 minutes 06/04 LUCIAN SLADE Acuity level 1; Total time 120 minutes with Coordination of a service and Individual emotional support. RH MESSAGE [facility] Coordinated care fee, initial rate 06/04 LUCIAN SLADE [facility] Internet Med Svc Qual Nonps Healthcare Prof Estab Patient Internet Med Sv Qual [facility] Healthcare Prof Estab Patient [id number] 06/04 LUCIAN SLDAE [facility] Wrist hand orthosis, wrist extension control cock-up, non molded, prefabricated, [id number]-[id number]-[id number] 04/02 MIRELA VALENTE [facility] Skin Test Anergy Tuberculin Intradermal Skin Test Anergy Tuberculin Intradermal 63401 01/18 SY MUNGUIA IPPD; Series #: 1; .1 mL; ID; Right Arm; Mfg: AVENTIS PASTEUR; Lot: [id number]. [facility] Postoperative Visit, Without Charge Postoperative Visit, Without Charge 17860 HENRI MCCANN [facility] -Supervised Specimen Handling / Transfer: Office To Lab -Supervised Specimen Handling / Transfer: Office To Lab 33136 07/15 NICOLE MCCANNGAIL [facility] Layer Closure Of Wound Trunk 2.6 to 7.5 cm Layer Closure Of Wound Trunk 2.6 to 7.5 cm 36449 07/15 NICOLE MCCANNGAIL [facility] Excision Of Lesion Scalp Malignant 2.1 to 3cm Excision Of Lesion Scalp Malignant 2.1 to 3cm 83781 07/15 [facility] Psychiatric Therapy Individual Approximately 20-30 Minutes 06/20 FREDERICK ALANIS [facility] Walking boot, non-pneumatic, with or without joints, with or without interface material, prefabricated item that has been trimmed, bent, molded, a embled, or otherwise customized to fit a specific patient by an individual with expertise 06/05 ANU SNYDER [facility] Biopsy Skin Biopsy Skin 84495 06/02 SHANDA LYNNE [facility] Psychiatric Therapy Individual Approximately 20-30 Minutes 05/10 FREDERICK ALANIS [facility] Psychiatric Therapy Individual Approximately 20-30 Minutes 04/26 FREDERICK ALANIS [facility] Immunization Administration One Vaccine Immunization Administration One Vaccine 01065 04/25 PANKAJ KING [facility] Psychiatric Therapy Individual Approximately 20-30 Minutes 04/01 FREDERICK ALANIS [facility] Medical Nutrition Therapy Re-a e ment, Intervention Medical Nutrition Therapy Re-assessment, Intervention 97900 03/30 LATESHA QUACH [facility] Psychiatric Therapy Group (Interview) Psychiatric Therapy Group (Interview) 80884 03/08 FREDERICK ALANIS [facility] Psychiatric Therapy Individual Approximately 20-30 Minutes 03/03 FREDERICK ALANIS [facility] Medical Nutrition Therapy Group (2 or More Individual(s)) Medical Nutrition Therapy Group (2 or More Individual(s)) 81225 03/01 LATESHA QUACH [facility] Patient Counseling Medical Management Five To Eight Patients Patient Counseling Medical Management Five To Eight Patients 06241 02/28 ARVIND NICOLAS [facility] Preventive Medicine Counseling/Educat ion On Medical/Surgical Treatment Options Preventive Medicine Counseling/Educa tion On Medical/Surgical Treatment Options 4325F 02/15 ALEKSANDAR MORALES Reviewed Tx options for 20 min. Plan in add notes section [facility] Cystoscopy (Diagnostic) Cystoscopy (Diagnostic) 81014 02/15 ALEKSANDAR MORALES Female flex cysto: Indications for procedure: Details of procedure: Once informed consent was obtained from the patient, she was brought to the cystoscopy suite and placed supine on the table. Her legs were placed in the lithotomy position, and her genitalia were prepped and draped in the standard fashion. 2% lidocaine jelly was instilled per urethra as a local anesthetic. The external genitalia were examined, and found to be free of lesions. Vaginal mucosa appeared healthy and non-friable. The flexible cystourethrosco pe was then inserted into the patient's urethra and guided into the bladder. There were no urethral lesions. The bladder and bladder neck were carefully inspected and were found to be free of lesions. Both ureteral orifices were orthotopic, with clear efflux bilaterally. The procedure was then terminated, and the patient tolerated the procedure well. [facility] -Supervised Group Educational Services -Supervised Group Educational Services [id number] 02/15 MOISES MARTELL [facility] Psychiatric Therapy Group (Interactive) Psychiatric Therapy Group (Interactive) [id number] 02/06 FREDERICK ALANIS [facility] Medical Nutrition Therapy Group (2 or More Individual(s)) Medical Nutrition Therapy Group (2 or More Individual(s)) [id number] 01/31 LATESHA QUACH [facility] Postoperative Visit, Without Charge Postoperative Visit, Without Charge [id number] 08/30 RONAL MALIK [facility] Osteopathic Manip Treatment (OMT) 1-2 Body Regions Involved Osteopathic Manip Treatment (OMT) 1-2 Body Regions Involved 01744 08/10 FLOR EL [facility] Implantable Contraceptive Capsules - Insertion 06/20 ROBERTO MISTRY [facility] Gynecologic Services Intrauterine Device (IUD) Removal Gynecologic Services Intrauterine Device (IUD) Removal 93282 05/17 MELITA MIRELES [facility] Screening papanicolaou smear; obtaining, preparing and conveyance of cervical or vaginal smear to laboratory 05/17 MELITA MIRELES [facility] Screening Test Of Visual Acuity, Quantitative, Bilateral Screening Test Of Visual Acuity, Quantitative, Bilateral 33164 04/23 ROMMEL PARKS [facility] Fluorescein Angioscopy (No Photography) Fluorescein Angioscopy (No Photography) 50112 04/23 ROMMEL PARKS [facility] Immunization Administration One Vaccine Immunization Administration One Vaccine 20157 03/10 RONI GONZALEZ [facility] Gynecologic Services Intrauterine Device (IUD) Insertion Gynecologic Services Intrauterine Device (IUD) Insertion [id number] 07/20 TIFFANIE PINK [facility] Influenza Split Virus Vaccine Age 3+ Years Intramuscular 07/20 TIFFANIE PINK Influenza Split (Injectable - preservative free); Series #: 1; .5 mL; IM; Left Arm; Mfg: [employer].; Lot: [id number]; VIS given (Jacqui: 12/18/12). [facility] Immunization Administration One Vaccine Immunization Administration One Vaccine 40745 07/20 TIFFANIE PINK [facility] Skin Test Anergy Tuberculin Intradermal Skin Test Anergy Tuberculin Intradermal 14342 12/25 NICKY URIOSTEGUI [facility] Tdap Vaccine Tdap Vaccine 73155 12/22 DAYSI FULLER Tdap; Series #: 1; .5 mL; IM; Right Arm; Mfg: [employer]; Lot: [id number]; VIS given (Jacqui: 06/18/11). [facility] Immunization Administration One Vaccine Immunization Administration One Vaccine 00297 12/22 DAYSI FULLER [facility] Immunization Administration Each Additional Vaccine Immunization Administration Each Additional Vaccine 2608212/22 DAYSI FULLER [facility] Hepatitis A Vaccine Adult Dosage (Intramuscular Use) Hepatitis A Vaccine Adult Dosage (Intramuscular Use) 70665 12/22 DAYSI FULLER Hep A (Adult); Series #: 1; 1.0 mL; IM; Left Arm; Mfg: Digital [employer] Strike; Lot: [id number]; VIS given (Jacqui: 03/19/11). [facility] Skin Test Anergy Tuberculin Intradermal Skin Test Anergy Tuberculin Intradermal 51675 12/22 DAYSI FULLER IPPD; Series #: 1; .1 mL; ID; Left Arm; Mfg: San[employer] P[employer]; Lot: [id number]. [facility] Non-Physician Phone Call To Patient/Provider Brief (5-10min) Non-Physician Phone Call To Patient/Provider Brief (5-10min) 77351 12/17 WAQAS SUTTON [facility] Non-Physician Phone Call To Patient/Provider Brief (5-10min) Non-Physician Phone Call To Patient/Provider Brief (5-10min) 29054 04/21 KEN BINGHAM [facility] Influenza Split Virus Vacc Age 3+ Years IM Preservative Free 03/23 DAYSI FULLER [facility] Immunization Administration One Vaccine Immunization Administration One Vaccine 62797 03/23 DAYSI FULLER [facility] Screening papanicolaou smear; obtaining, preparing and conveyance of cervical or vaginal smear to laboratory 03/23 DAYSI FULLER [facility] Non-Physician Phone Call To Patient/Provider Brief (5-10min) Non-Physician Phone Call To Patient/Provider Brief (5-10min) [id number] 07/19 MICHAEL WARREN [facility] Non-Physician Phone Call To Patient/Provider Brief (5-10min) Non-Physician Phone Call To Patient/Provider Brief (5-10min) [id number] 10/30 GODWIN ARIAS [facility] Non-Physician Phone Call To Patient/Provider Brief (5-10min) Non-Physician Phone Call To Patient/Provider Brief (5-10min) [id number] 10/03 MICHAEL WARREN [facility] Non-Physician Phone Call To Pt/Provider Intermed (11-20 min) Non-Physician Phone Call To Pt/Provider Intermed (11-20 min) [id number] 12/19 MYRA MOSS [facility] Implantable Contraceptive Capsules - Removal Implantable Contraceptive Capsules - Removal 23203 ANABELLA ECHOLS [facility] Internet Med Svc Qual Nonphys Healthcare Prof Estab Patient Internet Med Svc Qual Nonphys Healthcare Prof Estab Patient [id number] LUCIAN SLADE [facility] Coordinated care fee, risk adjusted maintenance LUCIAN SLADE [facility] Case Management, each 15 minutes LUCIAN SLADE Acuity level 2; Total time 180 minutes with Coordination of a service, Patient Activation Complex, and Individual emotional support. FACE TO FACE X 3 HOURS, RH MESSAGE SENT [facility] Psychiatric Evaluation Comprehensive Examination Psychiatric Evaluation Comprehensive Examination [id number] GODWIN ANDREWS [facility] Coordinated care fee, maintenance rate LUCIAN SLADE [facility] Case Management, each 15 minutes LUCIAN SLADE Acuity level 1; Total time 120 minutes with Coordination of a service and Individual emotional support. NOT FACE TO FACE, RH MESSAGE. [facility] Case Management, each 15 minutes LUCIAN SLADE Acuity level 2; Total time 210 minutes with Coordination of a service, Care Plan initiated, and Individual emotional support. NOT FACE TO FACE, RH MESSAGE. [facility] Postoperative Visit, Without Charge Postoperative Visit, Without Charge [id number] CHARLOTTE BATES [facility] POSTOPERATIVE FOLLOW-UP VISIT, NORMALLY INCLUDED IN THE SURGICAL PACKAGE, INDICATE THAT EVALUATION & MANAGEMENT SERVICE WAS PERFORMED DURING A POSTOPERATIVE PERIOD REASON RELATED ORIGINAL PROCEDURE 04/13 [facility] EXCISION OF STOMACH, PERCUTANEOUS ENDOSCOPIC APPROACH, VERTICAL 04/09 [facility] POSTOPERATIVE FOLLOW-UP VISIT, NORMALLY INCLUDED IN THE SURGICAL PACKAGE, INDICATE THAT EVALUATION & MANAGEMENT SERVICE WAS PERFORMED DURING A POSTOPERATIVE PERIOD REASON RELATED ORIGINAL PROCEDURE 04/09 [facility] LAPAROSCOPY, SURGICAL, GASTRIC RESTRICTIVE PROCEDURE; LONGITUDINAL GASTRECTOMY (IE, SLEEVE GASTRECTOMY) 04/08 [facility] COORDINATED CARE FEE, RISK ADJUSTED MAINTENANCE 02/04 DoD PSYCHOLOGICAL TEST EVAL SER,PHYS/OTH QUAL HCP,INC INTEGRAT,PT DATA,INT,STAND TEST RES & CLIN DATA,CLIN DEC MAKING,TREAT PLANNING &RPT,&INTERACT FEEDBACK TO THE PAT,[facility] N PERF; 1ST HR 01/13 DoD CASE MANAGEMENT, EACH 15 MINUTES 01/11 DoD PSYCHOLOGICAL TEST EVAL SER,PHYS/OTH QUAL HCP,INC INTEGRAT,PT DATA,INT,STAND TEST RES & CLIN DATA,CLIN DEC MAKING,TREAT PLANNING &RPT,&INTERACT FEEDBACK TO THE PAT,[facility] N PERF; 1ST HR 01/11 DoD CASE MANAGEMENT, EACH 15 MINUTES 12/10 DoD REMOVAL, NON-BIODEGRADABLE DRUG DELIVERY IMPLANT 12/03 [facility] MEDICAL NUTRITION THERAPY; INITIAL ASSESSMENT AND INTERVENTION, INDIVIDUAL, [id number] WITH THE PATIENT, EACH 15 MINUTES 09/21 [facility] ELECTROCARDIOGRAM , ROUTINE ECG WITH AT LEAST 12 LEADS; TRACING ONLY, WITHOUT INTERPRETATION AND REPORT 12/23 [facility] ONLINE ASSESS &MANAG SERV PROVIDE,A QUAL NONPHYS HCP TO AN ESTABLISHED PAT/GUARDIAN,NOT [facility] RELAT ASSESS &MANAG SERV PROVIDE W/IN THE PREV 7 DAYS,USE THE INTERNET/SIMILAR [employer] NETWORK 10/16 [facility] ETONOGESTREL (CONTRACEPTIVE) IMPLANT SYSTEM, INCLUDING IMPLANT AND SUPPLIES 07/24 DoD URINALYSIS, BY DIP STICK OR TABLET REAGENT FOR BILIRUBIN, GLUCOSE, HEMOGLOBIN, KETONES, LEUKOCYTES, NITRITE, PH, PROTEIN, SPEC GRAVITY, UROBILINOGEN, ANY NUMBER OF CONSTITUENTS; W/O MICRO, NON-AUTO 04/08 [facility] SCREENING PAPANICOLAOU SMEAR; OBTAINING, PREPARING AND CONVEYANCE OF CERVICAL OR VAGINAL SMEAR TO LABORATORY 11/19 DoD INJECTION, CEFTRIAXONE SODIUM, PER 250 MG 11/05 DoD URINALYSIS, BY DIP STICK OR TABLET REAGENT FOR BILIRUBIN, GLUCOSE, HEMOGLOBIN, KETONES, LEUKOCYTES, NITRITE, PH, PROTEIN, SPEC GRAVITY, UROBILINOGEN, ANY NUMBER OF CONSTITUENTS; W/O MICRO, NON-AUTO 06/20 DoD CASE MANAGEMENT, EACH 15 MINUTES 06/04 [facility] WRIST HAND ORTHOSIS, WRIST EXTENSION CONTROL COCK-UP, NON MOLDED, PREFABRICATED, [id number] 04/01 DoD SKIN TEST; TUBERCULOSIS, INTRADERMAL 01/18 DoD SKIN TEST; TUBERCULOSIS, INTRADERMAL 12/25 DoD SKIN TEST; TUBERCULOSIS, INTRADERMAL 12/22 DoD TELE ASSESS & MGT SRV PROV QUAL NONPHYS HLTH CARE PRO TO EST PAT,PARENT,GUARD NOT ORIG REL ASSESS & MGT SRV PROV W/IN PREV 7 DAYS NOR LEAD ASSESS & MGT SRV/PX W/IN NXT 24 HR/SOON APT;5-10 MIN MED DIS 12/17 DoD TELE ASSESS & MGT SRV PROV QUAL NONPHYS HLTH CARE PRO TO EST PAT,PARENT,GUARD NOT ORIG REL ASSESS & MGT SRV PROV W/IN PREV 7 DAYS NOR LEAD ASSESS & MGT SRV/PX W/IN NXT 24 HR/SOON APT;5-10 MIN MED DIS 04/21 DoD SCREENING PAPANICOLAOU SMEAR; OBTAINING, PREPARING AND CONVEYANCE OF CERVICAL OR VAGINAL SMEAR TO LABORATORY 03/23 DoD TELE ASSESS & MGT SRV PROV QUAL NONPHYS HLTH CARE PRO TO EST PAT,PARENT,GUARD NOT ORIG REL ASSESS & MGT SRV PROV W/IN PREV 7 DAYS NOR LEAD ASSESS & MGT SRV/PX W/IN NXT 24 HR/SOON APT;5-10 MIN MED DIS 07/19 DoD TELE ASSESS & MGT SRV PROV QUAL NONPHYS HLTH CARE PRO TO EST PAT,PARENT,GUARD NOT ORIG REL ASSESS & MGT SRV PROV W/IN PREV 7 DAYS NOR LEAD ASSESS & MGT SRV/PX W/IN NXT 24 HR/SOON APT;5-10 MIN MED DIS 10/30 DoD TELE ASSESS & MGT SRV PROV QUAL NONPHYS HLTH CARE PRO TO EST PAT,PARENT,GUARD NOT ORIG REL ASSESS & MGT SRV PROV W/IN PREV 7 DAYS NOR LEAD ASSESS & MGT SRV/PX W/IN NXT 24 HR/SOON APT;5-10 MIN MED DIS 10/03 DoD TELE ASSESS & MGT SRV PROV QUAL NONPHYS HLTH CARE PRO TO EST PAT,PARENT,GUARD NOT ORIG REL ASSESS & MGT SRV PROV W/IN PREV 7 DAYS NOR LEAD ASSESS & MGT SRV/PX W/IN NXT 24H/SOON APT; 11-20 MIN MED DIS 12/19 DoD BRIEF EMOTIONAL/BEHAVIO RAL ASSESSMENT (EG, DEPRESSION INVENTORY, ATTENTION-DEFICIT /HYPERACTIVITY DISORDER [ADHD] SCALE), WITH SCORING AND DOCUMENTATION, PER STANDARDIZED INSTRUMENT 08/09 [facility] POSTOPERATIVE FOLLOW-UP VISIT, NORMALLY INCLUDED IN THE SURGICAL PACKAGE, INDICATE THAT EVALUATION & MANAGEMENT SERVICE WAS PERFORMED DURING A POSTOPERATIVE PERIOD REASON RELATED ORIGINAL PROCEDURE DoD HANDLING AND/OR CONVEYANCE OF SPECIMEN FOR TRANSFER FROM THE OFFICE TO A LABORATORY 07/14 DoD PSYCHOTHERAPY, 30 MINUTES WITH PATIENT 06/14 DoD BRIEF EMOTIONAL/BEHAVIO RAL ASSESSMENT (EG, DEPRESSION INVENTORY, ATTENTION-DEFICIT /HYPERACTIVITY DISORDER [ADHD] SCALE), WITH SCORING AND DOCUMENTATION, PER STANDARDIZED INSTRUMENT 06/09 DoD WALKING BOOT,NON-PNEUMAT, W/W/O JOINTS,W/W/O INTERFACE MATERIAL,PREFABRI CATED ITEM THAT HAS BEEN TRIMMED,BENT,MOLD ED,ASSEMBLED,OR OTHERWISE CUSTOMIZED TO FIT A SPECIFIC PATIENT,AN INDIV W EXPERTISE 06/02 [facility] BIOPSY OF SKIN, SUBCUTANEOUS TISSUE AND/OR MUCOUS MEMBRANE (INCLUDING SIMPLE CLOSURE), UNLESS OTHERWISE LISTED; SINGLE LESION 06/01 [facility] APPLICATION OF SHORT LEG SPLINT (CALF TO FOOT) 05/31 DoD PSYCHOTHERAPY, 30 MINUTES WITH PATIENT 05/10 DoD PSYCHOTHERAPY, 30 MINUTES WITH PATIENT 04/19 DoD PSYCHOTHERAPY, 30 MINUTES WITH PATIENT 03/29 DoD MEDICAL NUTRITION THERAPY; RE-ASSESSMENT AND INTERVENTION, INDIVIDUAL, [id number] WITH THE PATIENT, EACH 15 MINUTES 03/29 [facility] ELECTROCARDIOGRAM , ROUTINE ECG WITH AT LEAST 12 LEADS; WITH INTERPRETATION AND REPORT 03/01 DoD PSYCHOTHERAPY, 30 MINUTES WITH PATIENT 03/01 [facility] GROUP PSYCHOTHERAPY (OTHER THAN OF A MULTIPLE-FAMILY GROUP) 02/28 [facility] EDUCATION &TRAINING, PATIENT SELF-MGT QUALIFIED, NONPHYSICIAN HEALTH ART PREPARATOR USING STANDARDIZED CURRICULUM, [id number] W THE PATIENT (COULD INCL CAREGIVER/FAMILY) EA 30 MIN; 5-8 PATIENTS 02/28 [facility] MEDICAL NUTRITION THERAPY; GROUP (2 OR MORE INDIVIDUAL(S)), EACH 30 MINUTES 02/28 [facility] MEDICAL AND SURGICAL TREATMENT OPTIONS REVIEWED WITH PATIENT (OR CAREGIVER) (PRKNS) 02/15 [facility] PHYS/OTH QUALIFIED HEALTH ART PREPARATOR QUALIFIED,EDUCATI ON,TRAIN,LICENSUR E/REGULATION (WHEN APPLICABLE) EDUC SER RENDERED TO PATS IN A [facility] SETTING (EG,,OBES ITY,OR DIABETIC INSTRUCT) 02/14 [facility] MEDICAL NUTRITION THERAPY; GROUP (2 OR MORE INDIVIDUAL(S)), EACH 30 MINUTES 01/27 [facility] GROUP PSYCHOTHERAPY (OTHER THAN OF A MULTIPLE-FAMILY GROUP) 01/27 [facility] POSTOPERATIVE FOLLOW-UP VISIT, NORMALLY INCLUDED IN THE SURGICAL PACKAGE, INDICATE THAT EVALUATION & MANAGEMENT SERVICE WAS PERFORMED DURING A POSTOPERATIVE PERIOD REASON RELATED ORIGINAL PROCEDURE 08/25 [facility] LAPAROSCOPIC CHOLECYSTECTOMY 08/13 [facility] POSTOPERATIVE FOLLOW-UP VISIT, NORMALLY INCLUDED IN THE SURGICAL PACKAGE, INDICATE THAT EVALUATION & MANAGEMENT SERVICE WAS PERFORMED DURING A POSTOPERATIVE PERIOD REASON RELATED ORIGINAL PROCEDURE 08/13 [facility] LAPAROSCOPY, SURGICAL; CHOLECYSTECTOMY 08/12 [facility] INJECTION, MORPHINE SULFATE, UP TO 10 MG 08/11 [facility] OSTEOPATHIC MANIPULATIVE TREATMENT (OMT); 1-2 BODY REGIONS INVOLVED 08/09 [facility] INSERTION, DRUG-DELIVERY IMPLANT (IE, BIORESORBABLE, BIODEGRADABLE, NON-BIODEGRADABLE ) 06/16 [facility] REMOVAL OF INTRAUTERINE DEVICE (IUD) 05/17 [facility] FLUORESCEIN ANGIOSCOPY WITH INTERPRETATION AND REPORT 04/22 [facility] IMMUNIZATION ADMINISTRATION (INCLUDES PERCUTANEOUS, INTRADERMAL, SUBCUTANEOUS, OR INTRAMUSCULAR INJECTIONS); 1 VACCINE (SINGLE OR COMBINATION VACCINE/TOXOID) 03/10 [facility] INFLUENZA VIRUS VACCINE, TRIVALENT (IIV3), SPLIT VIRUS, 0.5 ML DOSAGE, FOR INTRAMUSCULAR USE 07/20 DoD Social History Combined list of available smoking, tobacco, and other social history from Department of Defense and Veterans Affairs facilities. Social History Type Response Date Comment [facility] e Sex Representation Female (finding) 03/08/2017 Unknown Organization Sexual Orientation Amb[facility]ory [facility]acy Gender identity Ambulator y Pharmacy This section is an empty social history section. DoD Assessment and Plan Combined list of future care activities from Department of Defense and Veterans Affairs facilities (e.g., assessment and plan notes, appointments, orders, and referrals). Additional future care activities may be listed in the Plan of Care section. Result Assessment and Plan Date Source Assessment and Plan No data available for this section 12/20/2024 [facility]ulatory [facility] Functional Status Combined list of recent functional and cognitive assessments recorded at Department of Defense and Veterans Affairs (VA).VA Functional [place] Measurement (FIM) Scale: 1 = Total Assistance (Subject = 0% +), 2 = Maximal Assistance (Subject = 25% +), 3 = Moderate Assistance (Subject = 50% +), 4 = Minimal Assistance (Subject = 75% +), 5 = Supervision, 6 = Modified [place] (Device), 7 = Complete [place] (Timely, Safely). Assessment Date/Time Source Assessment Type Assessment Skill Assessment Score Assessment Details No data available for this section
--- OUTSIDE RECORDS SUMMARY | 2024-12-20 11:56 | XMS_ITS | Clinical Summary ---
Author Organization [facility] [address] [facility] Address [address] [place] [address] Care Team Providers Care Tools And Parts Attendant Name Role Phone Jak Cottrell MD Primary Care Provider [phone] Allergies Active Allergy Reactions Criticality Noted Date Comments Scopolamine Rash Medium 08/03/2020 Hydrocodone-Acetaminophen Itching,Rash Medium 08/04/19 21 Medications ProAir HFA 90 mcg/actuation inhaler 1 Active montelukast (SINGULAIR) 10 mg tablet 1 Active docusate sodium (COLACE) 100 mg capsuleIndicati ons:constipatio n Take 2 pills daily in the evening for management of chronic constipatoin 60 capsule 1 1 Active FLUoxetine (PROzac) 20 mg capsule 2 Active hydrocortisone 2.5 % cream 2 Active ketoconazole (NIZORAL) 2 % shampoo 2 Active dicyclomine (BENTYL) 10 mg capsule Take 1-2 pills up to 4 times daily as needed for abdominal cramping 60 capsule 1 2 Active senna (SENOKOT) 8.6 mg tablet Take 2 pills nightly for constipation management 180 tablet 3 2 Active azelastine (ASTELIN) 137 mcg (0.1 %) nasal spray 3 Active celecoxib (CeleBREX) 200 mg capsule 3 Active cetirizine (ZyrTEC) 10 mg tablet cetirizine 10 mg oral tablet Start Date: 03/08/17 Status: Ordered 7 Active famotidine (PEPCID) 40 mg tablet 3 Active Flovent HFA 110 mcg/actuation inhaler 3 Active metroNIDAZOLE (FLAGYL) 500 mg tablet 0 total refill(s) 7 Active mupirocin (BACTROBAN) 2 % ointment 3 Active oxaprozin (DAYPRO) 600 mg tablet oxaprozin 600 mg oral tablet Start Date: 03/08/17 Status: Ordered 7 Active Active Problems Problem Noted Date Diagnosed Date [...] 03/29/2016 Obesity, unspecified 03/29/2016 Seborrhea capitis 03/29/2016 Immunizations Immunization Administration Dates Next Due DTP 08/02/1987, 6,1982,07/03,1982 Hep A, Adult 12/22/2012 Influenza, Quadrivalent, Spl it, Preservative Free, Intramuscular 05/07/2022,04/24/2015 Influenza, Trivalent, Preser vative Free, Intramuscular 03/10/2014,07/20/2013 Influenza, Unspecified 01/19/2016 Influenza, Whole 03/23/2012 MMR 01/08/1993,09/01/1985 OPV 08/02/1987, 6,1982,07/03,1982 PPD TEST 01/19/2016,12/22/2012 Tdap 12/22/2012 Surgical History Surgery Date Site/Laterality Comments CHOLECYSTECTOMY DEBRIDEMENT TENNIS ELBOW TUBAL LIGATION ENDOMETRIAL ABLATION GASTRECTOMY TENDON REPAIR 05/26/2017 - 05/25/2018 Left FLUORO GUIDED ASPIRATION OR INJECTION LARGE JOINT LEFT 02/14/2023 Left Medical History Medical History Date Comments Anxiety Allergic Sleep apnea Basal cell adenoma Asthma Family History Medical History Relation Name Comments Heart attack Father Cervical cancer Mother Ovarian cancer Sister Relation Name Status Comments Father Mother Alive Sister Social History Tobacco Use Types Packs/Day Years Used Date Smoking Tobacco: Never Smokeless Tobacco: Never Tobacco Cessation:Counseling Given: Not Answered AUDIT-C Answer Date Recorded Q1: How often do you have a drink containing alc ohol? 2-4 times a month 02/26/2022 Q2: How many drinks containi ng alcohol do you have on a typical day when you are drinking? 1 or 2 02/26/2022 Q3: How often do you have si x or more drinks on one occasion? Never 02/26/2022 Personal Safety Answer Date Recorded Getting School Help Needed Not on file 05/06 Comments No Sex and Gender Information Value Date Recorded Sex Assigned at Not on file Legal Sex Female 12:59 AM THERAPEUTIC SPECIALIST Gender Identity Female 09/18/2022 6:11 PM CDT Sexual Orientation Straight 09/18/2022 6: 11 PM CDT Obstetrics History Para Term AB IAB SAB Ectopic Multiple Livin g Live Births 4 4 4 Date Outcome GA Total Labor Labor/2nd/3rd Weight Sex Type Anes PTL Anali A1 A5 Name Clin Term Term Term Term Last Filed Vital Signs Vital Sign Reading Time Taken Comments Blood Pressure 120/80 02/26/2022 8:42 AM CDT Pulse 72 02/26/2022 8:42 AM CDT Temperature 36.7 C (98 F) 01/14/2022 9:05 AM CDT Respiratory Rate 18 01/14/2022 9:05 AM CDT Oxygen Saturation 97% 02/26/2022 8:42 AM CDT Inhaled Oxygen Concentration - - Weight 88.5 kg (195 lb) 01/28/2023 1:22 PM CDT Height 154.9 cm (5' 1) 01/28/2023 1:22 PM CDT Body Mass Index 36.84 01/28/2023 1:22 PM CDT Plan of Treatment Health Maintenance Due Date Last Done Comments Cervical Cancer Screening 1982 Depression Screening 1982 Hepatitis C Screening 1982 Varicella Vaccines (1 of 2 - 13+ 2-dose series) 1995 Hepatitis B Screening 2000 Regular Well Visit/Exam 18-64 2000 Pneumococcal vaccine <65 (1 of 2 - PCV) 2001 HPV Vaccines (1 - 3-dose SCD M series) 2009 DTaP/Tdap/Td Vaccine (7 - Td or Tdap) 12/22/2022 12/22/2012, 08/02/1987, 09/01/1985, Additional history exists Breast Cancer Screening-Mammogram 12/05/2024 024, 10/26/2022 Influenza Vaccine (#1) 2025 , 01/19/2016, 04/24/2015, Additional history exists Procedures Procedure Name Priority Date/Time Associated Diagnosis Comments SCREENING MAMMOGRAM BILATERAL W AHMET Schedule Routine, Read Routine (OP Routine) 12/06/2023 10:44 AM CDT Screening mammogram, encounter for from Last 3 Months or Most Recently Relevant to Health Maintenance Results * Screening Mammogram Bilateral W Ahmet (12/06/2023 10:44 AM CDT) Anatomical Region Laterality Modality Breast Bilateral Mammography 12/06/2023 2:02 PM CDT Impressions 12/06/2023 2:02 PM CDT There is no mammographic evidence of malignancy. A 1 year screening mammogram is recommended. BI-RADS: 1 - Negative. The patient has been or will be contacted. The patient will be entered into a reminder system with a target due date of 1 year for her next mammogram. Electronically signed by: THELMA Flynn 12/06/2023 2:02 PM CDT EXAMINATION: SCREENING MAMMOGRAM BILATERAL W AHMET ORDERING HEALTHCARE PROVIDER: SELF SCREENING MAMMOGRAM HISTORY: Routine screening mammography. COMPARISON: 10/26/2022. TECHNIQUE: CC and MLO views of both breasts were obtained with digital technique using digital breast tomosynthesis with C view. Computer aided detection was utilized. FINDINGS: DENSITY: The breasts have scattered areas of fibroglandular density. BREASTS: There is no new suspicious finding in either breast on mammogram. us Self Screening Mammogram IMG MAMMO PROCEDURES Fi nal Result from Last 3 Months or Most Recently Relevant to Health Maintenance Insurance [id number] [facility] [employer] Advance Directives For more information, please contact: [phone] * Full Code (Latest Code Status on File) Date Activated Date Inactivated Comments 01/14/2022 7:44 AM 01/14/2022 1:23 PM * Full Code Date Activated Date Inactivated Comments 01/14/2022 7:44 AM 01/14/2022 7:44 AM Care Teams Tools And Parts Attendant Relationship Specialty Start Date End Date Jak Cottrell MD PCP - General Internal Medicine 08/03/20
--- OUTSIDE RECORDS SUMMARY | 2024-12-20 11:56 | XMS_ITS | Clinical Summary ---
Author Organization [facility] Address [address] [place] [address] Phone Care Team Providers Care Balance Wheel Hand Filer Name Role Phone Jak Cottrell MD Primary Care Provider [phone] Social History Tobacco Use Types Packs/Day Years Used Date Smoking Tobacco: Never Assessed Comments Unknown Sex and Gender Information Value Date Recorded Sex Assigned at Not on file Legal Sex Female 7:48 PM CDT Gender Identity Not on file Sexual Orientation Not on file Plan of Treatment Health Maintenance Due Date Last Done Comments Hepatitis C Virus (HCV) Screening 1982 TdaP Immunization 1982 Human Papillomavirus (HPV) Immunization (1 - 3-dose series) 1997 Hepatitis B Immunization (1 of 3 - 19+ 3-dose series) 2001 Pap Smear 2003 Cervical Cancer Screening (CCS) 2012 HPV/Cotest 2012 SARS-COV-2 Immunization ( season) 2024 Influenza Immunization (#1) 2025 Respiratory Syncytial Virus (RSV) Immunization (Adult) (1 - 1-dose 75+ series) 2057 DTaP/Tdap/Td Immunization Discontinued 1987, 09/01/1985, 1982, Additional history exists Meningococcal Immunization (ACWY) Aged Out No longer eligible based on patient's age to complete this topic Pneumococcal Immunization Combined Aged Out No longer eligible based on patient's age to complete this topic Rotavirus Immunization Aged Out No lo nger eligible based on patient's age to complete this topic Care Teams Balance Wheel Hand Filer Relationship Specialty Start Date End Date Jak Cottrell MD [address] [place] [address] PCP - General Internal Medicine 07/20/20
--- OUTSIDE RECORDS SUMMARY | 2024-12-20 11:56 | XMS_ITS | Referral Summary ---
Author Organization [facility] [place] [facility] Address [address] [place] [address] Care Team Providers Care Guide Foreign Tour Name Role Phone Jak Cottrell MD Primary Care Provider [phone] Allergies Active Allergy Reactions Criticality Noted Date [...] 08/02/1987, 6,1982,07/03,1982 PPD TEST 01/19/2016,12/22/2012 Tdap 12/22/2012 Social History Tobacco Use Types Packs/Day Years [...] on file Legal Sex Female 12:59 AM TITLE SEARCHER Gender Identity Female 09/18/2022 6:11 PM CDT Sexual Orientation Straight 09/18/2022 6: 11 PM CDT Last Filed Vital Signs Vital Sign Reading [...] 01/28/2023 1:22 PM CDT Plan of Treatment Not on file Procedures Procedure Name Priority Date/Time Associated Diagnosis [...] Most Recently Relevant to Health Maintenance Insurance Advance Directives For more information, please contact: [phone] * Full Code (Latest Code Status on File) Date Activated Date Inactivated Comments 01/14/2022 7:44 AM 01/14/2022 1:23 PM * Full Code Date Activated Date Inactivated Comments 01/14/2022 7:44 AM 01/14/2022 7:44 AM Care Teams Guide Foreign Tour Relationship Specialty Start Date End Date Jak Cottrell MD PCP - General Internal Medicine 08/03/20
--- OUTSIDE RECORDS SUMMARY | 2024-12-20 11:56 | XMS_ITS | Encounter Summary ---
Author Organization [facility] Address [address] [place] [address] Phone Care Team Providers Care Mathematics Professor Name Role Phone Jak Cottrell MD Primary Care Provider [phone] Encounter Details Date Type Department Care Team (Latest Contact Info) Description 07/20/2020 Transcribe Orders [facility] [address] [place] [id number] Stephan Atkins MD [address] [place] [address] Immunity status testing (Primary Dx) Social History Tobacco Use Types Packs/Day Years Used Date Smoking Tobacco: Never Assessed Comments Unknown Sex and Gender Information Value Date Recorded Sex Assigned at Not on file Legal Sex Female 7:48 PM CDT Gender Identity Not on file Sexual Orientation Not on file COVID-19 Exposure Response Date Recorded In the last month, have you been in contact with someone who was confirmed or suspected to have Coronavirus / COVID-19? No / Unsure 07/20/2020 7:03 AM WAFER PRODUCTION WORKER documented as of this encounter Plan of Treatment Not on file documented as of this encounter Results * HEPATITIS B SURFACE ANTIBODY (HBSAB) (07/20/2020 7:09 AM WAFER PRODUCTION WORKER) HEPATITIS B SURFACE ANTIBODY 21.55 mIU/mL [facility] [id number] 07/20/2020 3:05 PM WAFER PRODUCTION WORKER [facility] Comment: Detected Range: >12.00 Individual is considered immune to HBV infection Blood Venipuncture / Unknown 07/20/2020 7:09 AM WAFER PRODUCTION WORKER 07/20/2020 8:06 AM WAFER PRODUCTION WORKER us Stephan Atkins MD CHEMISTRY ORDERABLES Final R esult [facility] [address] [place] [address], documented in this encounter Visit Diagnoses Diagnosis Immunity status testing- Primary Antibody response examination documented in this encounter Care Teams Mathematics Professor Relationship Specialty Start Date End Date Jak Cottrell MD [address], [place] [id number] PCP - General Internal Medicine 07/20/20 documented as of this encounter
[2024-12-20 12:40] LABS: Hematocrit 42.0 % (37.0-47.0); Hemoglobin 14.1 g/dL (12.0-15.0); Mean Corpuscular HGB Conc 33.6 g/dl (32-36); Mean Corpuscular Hemoglobin 30.4 pg (26-34); Mean Corpuscular Volume 90.5 fl (80-100); Platelet Count Result 259 k/mm3 (150-375); Red Blood Count 4.64 M/mm3 (4.2-5.4); White Blood Count 6.8 K/mm3 (4.5-10.0)
[2024-12-20 12:50] LABS: Add Urine Microscopic? YES; Appearance Urine Clear (Clear); Glucose Urine UA Negative (Negative); Leukocyte Esterase Ur 2+ LEU/UL (Negative); Need Manual Microscopic Reviewed; Nitrate Urine Negative (Negative); Specific Grav Ur 1.029 (1.001-1.035)
[2024-12-20 13:02] LABS: Alanine Aminotransferase 15 U/L (6-35); Albumin Level 4.5 g/dL (3.5-5.1); Alkaline Phosphatase 59 U/L (38-126); Anion Gap 11 mmol/L (4-12); Aspartate Amino Transferase 25 U/L (14-36); Bilirubin,Total 1.9 mg/dL (0.2-1.3); Blood Urea Nitrogen 10 mg/dL (7-17); Calcium 9.6 mg/dL (8.4-10.2); Carbon Dioxide 24 mmol/L (22-30); Chloride 102 mmol/L (98-107); Estimated Glomerular Filt Rate > 60; Glucose 75 mg/dL (65-110); Potassium 4.2 mmol/L (3.4-5.0); Sodium 137 mmol/L (137-145); Total Protein 7.9 g/dL (6.3-8.2)
[2024-12-20 13:13] LABS: Free T4 Free Thyroxine 1.09 ng/dL (0.78-2.19)
[2024-12-20 13:37] LABS: Thyroid Stimulating Hormone 1.520 uIU/mL (0.465-4.680)
[2024-12-21 07:08] LABS: LH 4.4 mIU/mL (.)
[2024-12-24 18:07] LABS: Estradiol, Sensitive 145.8 pg/mL (.)
== END 2024-12-20 11:37 | disposition home or self-care (01) ==
PROVIDERS: PCP Internal Medicine; Visit Provider Nurse Practitioner Family
DX: R10.2 Pelvic and perineal pain (principal)
CPT/HCPCS: 36415; 80053; 81001; 82670; 83002; 84146; 84439; 84443; 85027

== ENCOUNTER 2024-12-20 13:01 | Outpatient (CLI) | payer OTHER, SELFPAY ==
--- NOTE | ~2024-12-20 | US_ITS ---
EXAMINATION: US pelvic complete w TV INDICATION: Pelvic pain Comparison:No prior studies for comparison. TECHNIQUE: Multiple transabdominal and endovaginal sonographic images of the pelvis performed. FINDINGS: The uterus measures 6.7 x 3.4 x 4.7 cm. There is a fibroid at the fundus posteriorly measur ing 11 mm. The endometrial complex measures 3 mm. The right ovary measures 2.7 x 1.4 x 2.4 cm and the left ovary measures 3 x 2.9 x 1.6 cm. There is a left hypoechoic ovarian cyst measuring 2.2 cm, likely hemorrhagic. There are small follicles in each ovary. Normal doppler signal in both ovaries. There is free fluid in the pelvis. There are no abnormal masses seen on either side. IMPRESSION: 1. Probable hemorrhagic cyst of the left ovary measuring 2 cm. 2: Small uterine fibroid measuring 11 mm. Reviewed, dictated and finalized at location A.
== END 2024-12-20 13:02 | disposition home or self-care (01) ==
LOC: MICIMG 13:03
PROVIDERS: PCP Internal Medicine; Visit Provider Nurse Practitioner Family
DX: D25.9 Leiomyoma of uterus, unspecified (principal)
CPT/HCPCS: 76830; 76856

== ENCOUNTER 2025-05-02 12:05 | Outpatient (CLI) | payer OTHER, SELFPAY ==
[2025-05-02 12:32] LABS: Hematocrit 40.3 % (35.0-49.0); Hemoglobin 13.8 g/dL (12.0-15.0); Mean Corpuscular HGB Conc 34.2 g/dL (32-36); Mean Corpuscular Hemoglobin 30.9 pg (27.0-31.0); Mean Corpuscular Volume 90.4 fL (78.0-102.0); Platelet Count Result 299 K/mm3 (150-420); Red Blood Count 4.46 M/mm3 (4.20-5.40); White Blood Count 6.7 K/mm3 (4.8-10.8)
[2025-05-02 12:50] LABS: Alanine Aminotransferase 12 U/L (6-35); Albumin Level 4.6 g/dL (3.5-5.1); Alkaline Phosphatase 61 U/L (38-126); Anion Gap 9 mmol/L (4-12); Aspartate Amino Transferase 18 U/L (14-36); Bilirubin,Total 1.3 mg/dL (0.2-1.3); Blood Urea Nitrogen 6 mg/dL (7-17); Calcium 9.4 mg/dL (8.4-10.2); Carbon Dioxide 25 mmol/L (22-30); Chloride 107 mmol/L (98-107); Estimated Glomerular Filt Rate > 60; Glucose 84 mg/dL (65-110); Iron 87 ug/dL (37-170); Magnesium 2.1 mg/dL (1.6-2.3); Osmolality Calculated 288 mOsm/kg (285-295); Potassium 4.0 mmol/L (3.4-5.0); Sodium 141 mmol/L (137-145); Total Protein 7.3 g/dL (6.3-8.2)
[2025-05-02 13:07] LABS: Free T4 Free Thyroxine 1.02 ng/dL (0.78-2.19)
[2025-05-02 13:21] LABS: Thyroid Stimulating Hormone 0.588 uIU/mL (0.465-4.680)
== END 2025-05-02 12:06 | disposition home or self-care (01) ==
LOC: CHSLAB 12:08
PROVIDERS: PCP Internal Medicine; Visit Provider Nurse Practitioner Family
DX: R42 Dizziness and giddiness (principal)
CPT/HCPCS: 36415; 80053; 83540; 83735; 84439; 84443; 85027